=== PATIENT | female | born 1990 | race Caucasian/White ===

== ENCOUNTER 2022-01-17 19:25 | Emergency (ER) | payer OTHER, SELFPAY ==
--- NOTE | ~2022-01-17 | US_ITS ---
EXAMINATION: US ABDOMEN LIMITED CLINICAL INFORMATION: Right upper quadrant pain.. Nausea and vomiting. COMPARISON: None TECHNIQUE: Real-time imaging of the right upper quadrant abdominal viscera.: Doppler utilized. FINDINGS: LIVER: Diffuse increased echoes the liver parenchyma due to fatty change. No focal liver lesion. No intrahepatic bile duct dilatation. GALLBLADDER: Multiple gallstones within the gallbladder. No gallbladder wall thickening or pericholecystic fluid. COMMON BILE DUCT: Normal in caliber measuring 0.4 cm in diameter. FREE FLUID: None. US/US abdomen limited IMPRESSION: 1. Cholelithiasis. No acute change of gallbladder wall. No bile duct dilatation. 2. Diffuse fatty change of liver.
[2022-01-17 19:33] VITALS: BP 130/83; PULSE 76; RESP 17; TEMP 36.7; O2SAT 98; BMI 38.2
[2022-01-17 20:17] LABS: MANUAL DIFF FLAG NO
[2022-01-17 20:18] LABS: Basophils Percent Auto 0.5 % (0-2); Eosinophils Absolute Auto 0.1 X10*3/uL (0.0-0.4); Eosinophils Percent Auto 1.3 % (0-4); Hematocrit 36.7 % (37.0-47.0); Hemoglobin 12.3 g/dl (12.0-16.0); Imm Gran Abs Auto 0.01 X10*3/uL (0.00-0.03); Imm Gran Pct Auto 0.2 % (0.0-0.4); Lymphocytes Absolute Auto 2.2 X10*3/uL (1.2-4.9); Mean Corpuscular HGB Conc 33.5 g/dl (31.0-35.0); Mean Corpuscular Hemoglobin 27.4 pg (27.0-33.0); Mean Corpuscular Volume 81.7 fL (80.0-98.0); Mean Platelet Volume 9.2 fL (9.4-12.3); Monocytes Absolute Auto 0.6 X10*3/uL (0.1-1.2); Monocytes Percent Auto 9.9 % (2-11); Neutrophils Absolute Auto 2.7 x10*3/uL (2.0-8.3); Neutrophils Percent Auto 48.1 % (45-73); Platelet Count 293 X10*3/uL (160-400); Red Blood Count 4.49 X10*6/uL (4.20-5.50); Red Cell Distribution Width 12.5 % (11.0-16.0); White Blood Count 5.6 X10*3/uL (4.8-10.8)
[2022-01-17 20:19] LABS: Appearance Urine Clear; Color Urine Yellow; Glucose Urine UA Negative (Negative); Leukocyte Esterase Urine Small (1+) (Negative); Nitrite Urine Negative (Negative); PH 6.5 (5.0-9.0); Specific Gravity - Urine 1.015 (1.005-1.025); UMIC TRIGGER UACC YES; Urine Blood Moderate (2+) (Negative); Urine Ketones Negative (Negative); Urine Protein Negative (Neg-Trace)
[2022-01-17 20:21] LABS: UPreg QC Valid YES; Urine Pregnancy NEGATIVE (NEGATIVE)
[2022-01-17 20:35] LABS: Alanine Aminotransferase 60 U/L (0-31); Albumin Level 4.7 g/dL (3.5-5.0); Alkaline Phosphatase 83 U/L (39-117); Anion Gap 14 (12-20); Aspartate Amino Transferase 34 U/L (5-31); Bilirubin Total 0.3 mg/dL (0.0-1.0); Blood Urea Nitrogen 11 mg/dL (9-16); Calcium 9.3 mg/dL (8.4-10.2); Carbon Dioxide 24 mmol/L (22-29); Chloride 107 mmol/L (96-108); Creatinine Clr Calc Pharmacy 113.6; Estimated Glomerular Filt Rate > 60; Glucose Random 103 mg/dL (60-115); Lipase 40 U/L (8-78); Potassium 3.9 mmol/L (3.3-5.1); Sodium 141 mmol/L (135-145); Total Protein 7.1 g/dL (6.5-8.0)
[2022-01-17 21:11] LABS: Bacteria Urine None Seen (None Seen); Hyaline Casts Urine 0-2 /LPF (0-2); RBC Urine 0-2 /HPF (0-2); Squamous Epithelial Cell Urine 0-2 /HPF (0-2); UACC Culture Trigger YES; WBC Urine 0-5 /HPF (0-5)
--- NOTE | 2022-01-17 22:02 | ED_ITS ---
HPI - Abdominal Pain General Chief Complaint: Abdominal Pain Stated Complaint: gallbladder pain Time Seen by Provider: 01/17/22 21:41 Source: patient Mode of arrival: ambulatory History of Present Illness HPI narrative: 31-year-old female presents with complaints of onset of right upper quadrant pain that radiates into her back and up into her right shoulder that started this morning and has been associated with multiple episodes of nausea and vomiting but denies any fever chills, and denies any urinary pain/burning/frequency. Patient states that she has been evaluated by [facility] surgery was unable to schedule her for cholecystectomy until next April. Related Data Previous Rx's Medication Instructions Recorded ketorolac 10 mg tablet 10 mg PO Q6H PRN pain 5 days #20 01/17/22 tabs ondansetron HCl 4 mg tablet 4 mg PO Q6H PRN nausea and 01/17/22 vomiting #10 tabs Allergies Allergy/AdvReac Type Severity Reaction Status Date / Time metoclopramide Allergy Itching Verified 01/17/22 22:01 Review of Systems Review of Systems Pertinent positives and negatives as stated in HPI 10 point review of systems is otherwise negative. [facility] Past Medical History Source: nursing notes reviewed Social History Social History Advance Directives: No Advance Directives Information Provided: No Physical Exam ED Vital Signs: Vital Signs - 24 hr 01/17/22 19:33 01/17/22 23:04 Temperature 98.0 F Pulse Rate 76 77 Respiratory Rate 17 18 Blood Pressure 130/83 134/82 Pulse Oximetry 98 99 Oxygen Delivery Method Room Air Room Air BMI result Body Mass Index 38.2 VITAL SIGNS: Reviewed. GENERAL: Elevated BMI, Well developed, well nourished, in no acute distress. HEAD: Normocephalic/atraumatic EYES: PERRLA, EOMI EARS: Ext canals without abnormality OROPHARYNX: no oral lesions noted, posterior pharynx clear LUNGS: Normal breath sounds. No adventitious sounds or accessory muscle use. SpO2<98> CARDIOVASCULAR: Regular rate and rhythm without noted murmur ABDOMEN: Soft, right upper quadrant pain, Soto's positive, non-distended with bowel sounds. MUSCULOSKELETAL: No tenderness, deformities, or effusions noted on gross inspection. EXTREMITIES: No cyanosis, clubbing or edema. SKIN: Inspection of the skin reveals no rashes NEUROLOGIC: Alert and oriented x 4. Strength and sensation to light touch were grossly intact x 4. Course Course Course Narrative: 31-year-old female with history and clinical presentation after review of all investigations with possibility of either biliary colic but lower clinical suspicion for acute cholecystitis. On review of all investigations to include ultrasound there is no evidence to suggest acute cholecystitis, patient's nausea and vomiting have resolved however she is still having some vague abdominal discomfort. I did discuss case with Dr. Greene who feels that as long is patient's p.o. tolerance and pain are well controlled the patient can follow-up with him and possibly get scheduled for surgery sometime this week. I have discussed all results, findings as well as the hopeful plan. Patient is very pleased and is otherwise stable for discharge to home. Medications Administered Discontinued Medications Generic Name Dose Route Start Last Admin Trade Name Freq PRN Reason Stop Dose Admin Acetaminophen 650 mg 01/17/22 23:17 01/17/22 23:39 Acetaminophen 325 Mg Tablet PO 01/17/22 23:18 650 mg ONCE ONE Administration Ondansetron HCl 4 mg 01/17/22 22:05 01/17/22 23:03 Ondansetron Odt 4 Mg Tab.Rapdis TRANSLINGU 01/17/22 22:06 Not Given ONCE ONE MDM - Abdominal Pain Lab Data Result diagrams: 01/17/22 20:09 01/17/22 20:09 Labs: Lab Results 01/17/22 01/17/22 01/17/22 Range/Units 20:09 20:09 20:09 WBC 5.6 (4.8-10.8) X10*3/uL RBC 4.49 (4.20-5.50) X10*6/uL Hgb 12.3 (12.0-16.0) g/dl Hct 36.7 L (37.0-47.0) % MCV 81.7 (80.0-98.0) fL MCH 27.4 (27.0-33.0) pg MCHC 33.5 (31.0-35.0) g/dl RDW 12.5 (11.0-16.0) % Plt Count 293 (160-400) X10*3/uL MPV 9.2 L (9.4-12.3) fL Immature Gran % (Auto) 0.2 (0.0-0.4) % Neut % (Auto) 48.1 (45-73) % Lymph % (Auto) 40.0 (20-40) % Thomas % (Auto) 9.9 (2-11) % Eos % (Auto) 1.3 (0-4) % Baso % (Auto) 0.5 (0-2) % Lymph # (Auto) 2.2 (1.2-4.9) X10*3/uL Thomas # (Auto) 0.6 (0.1-1.2) X10*3/uL Eos # (Auto) 0.1 (0.0-0.4) X10*3/uL Baso # (Auto) 0.0 (0.0-0.2) X10*3/uL Abs Immat Gran (auto) 0.01 (0.00-0.03) X10*3/uL Absolute Neuts (auto) 2.7 (2.0-8.3) x10*3/uL Absolute Nucleated RBC 0.000 (0.0-0.012) X10*3/uL Nucleated RBC % (auto) 0.0 (0.0-0.2) /100WBC Sodium 141 (135-145) mmol/L Potassium 3.9 (3.3-5.1) mmol/L Chloride 107 (96-108) mmol/L Carbon Dioxide 24 (22-29) mmol/L Anion Gap 14 (12-20) BUN 11 (9-16) mg/dL Creatinine 0.86 (0.5-1.4) mg/dL Estim Creat Clear Calc 113.6 Estimated GFR > 60 Random Glucose 103 (60-115) mg/dL Calcium 9.3 (8.4-10.2) mg/dL Magnesium 2.0 (1.6-2.6) mg/dL Total Bilirubin 0.3 (0.0-1.0) mg/dL AST 34 H (5-31) U/L ALT 60 H (0-31) U/L Alkaline Phosphatase 83 (39-117) U/L Total Protein 7.1 (6.5-8.0) g/dL Albumin 4.7 (3.5-5.0) g/dL Lipase 40 (8-78) U/L Urine Color Yellow Urine Appearance Clear Urine pH 6.5 (5.0-9.0) Ur Specific [place] 1.015 (1.005-1.025) Urine Protein Negative (Neg-Trace) mg/dL Urine Glucose (UA) Negative (Negative) mg/dL Urine Ketones Negative (Negative) mg/dL Urine Blood Moderate (2+) H (Negative) Urine Nitrite Negative (Negative) Ur Leukocyte Esterase Small (1+) H (Negative) Urine RBC 0-2 (0-2) /HPF Urine WBC 0-5 (0-5) /HPF Ur Squamous Epith Cells 0-2 (0-2) /HPF Urine Bacteria None Seen (None Seen) Hyaline Casts 0-2 (0-2) /LPF Urine Test (NEGATIVE) 01/17/22 Range/Units 20:09 WBC (4.8-10.8) X10*3/uL RBC (4.20-5.50) X10*6/uL Hgb (12.0-16.0) g/dl Hct (37.0-47.0) % MCV (80.0-98.0) fL MCH (27.0-33.0) pg MCHC (31.0-35.0) g/dl RDW (11.0-16.0) % Plt Count (160-400) X10*3/uL MPV (9.4-12.3) fL Immature Gran % (Auto) (0.0-0.4) % Neut % (Auto) (45-73) % Lymph % (Auto) (20-40) % Thomas % (Auto) (2-11) % Eos % (Auto) (0-4) % Baso % (Auto) (0-2) % Lymph # (Auto) (1.2-4.9) X10*3/uL Thomas # (Auto) (0.1-1.2) X10*3/uL Eos # (Auto) (0.0-0.4) X10*3/uL Baso # (Auto) (0.0-0.2) X10*3/uL Abs Immat Gran (auto) (0.00-0.03) X10*3/uL Absolute Neuts (auto) (2.0-8.3) x10*3/uL Absolute Nucleated RBC (0.0-0.012) X10*3/uL Nucleated RBC % (auto) (0.0-0.2) /100WBC Sodium (135-145) mmol/L Potassium (3.3-5.1) mmol/L Chloride (96-108) mmol/L Carbon Dioxide (22-29) mmol/L Anion Gap (12-20) BUN (9-16) mg/dL Creatinine (0.5-1.4) mg/dL Estim Creat Clear Calc Estimated GFR Random Glucose (60-115) mg/dL Calcium (8.4-10.2) mg/dL Magnesium (1.6-2.6) mg/dL Total Bilirubin (0.0-1.0) mg/dL AST (5-31) U/L ALT (0-31) U/L Alkaline Phosphatase (39-117) U/L Total Protein (6.5-8.0) g/dL Albumin (3.5-5.0) g/dL Lipase (8-78) U/L Urine Color Urine Appearance Urine pH (5.0-9.0) Ur Specific [place] (1.005-1.025) Urine Protein (Neg-Trace) mg/dL Urine Glucose (UA) (Negative) mg/dL Urine Ketones (Negative) mg/dL Urine Blood (Negative) Urine Nitrite (Negative) Ur Leukocyte Esterase (Negative) Urine RBC (0-2) /HPF Urine WBC (0-5) /HPF Ur Squamous Epith Cells (0-2) /HPF Urine Bacteria (None Seen) Hyaline Casts (0-2) /LPF Urine Test NEGATIVE (NEGATIVE) Discharge Plan Discharge Clinical Impression: Biliary colic, Cholelithiasis Patient Disposition: Home, Self-Care Instructions: Biliary Colic (ED), Gallstones (ED) Additional Instructions: 1. Tylenol 1000 mg, orally, every 6 hours as needed for pain control. Do not exceed 4000 mg within 24 hours. 2. You have been provided with a referral to follow-up with General surgery, please call the office 1st thing in the morning. Return to the ER for worsening symptoms. Prescriptions: New ketorolac 10 mg tablet 10 mg PO Q6H PRN (Reason: pain) 5 Days Qty: 20 0RF Rx Instructions: 1. Patient received Toradol in the emergency room. ondansetron HCl 4 mg tablet 4 mg PO Q6H PRN (Reason: nausea and vomiting) Qty: 10 0RF Referrals: Abdiel Hernandez MD [Primary Care Provider] - Neil Greene MD [Physician] -
--- NOTE | 2022-01-17 22:59 | PC.NURSE ---
attempted to medicate pt, pt in u/s.
--- NOTE | 2022-01-17 23:03 | PC.NURSE ---
pt back from u/s, denies any nausea at this time, declined zofran.
[2022-01-17 23:04] VITALS: BP 134/82; PULSE 77; RESP 18; O2SAT 99
[2022-01-17] MEDS: Acetaminophen 325 MG TABLET 650 MG PO (23:39)
[2022-01-18] MEDS: Ketorolac Tromethamine 15 MG/ML VIAL IM (00:37)
== END 2022-01-18 01:04 | disposition home or self-care (01) ==
PROVIDERS: Emergency Provider Student in an Organized Health Care Education/Training Program; PCP Internal Medicine
DX: K80.50 Calculus of bile duct without cholangitis or cholecystitis without obstruction (principal); Z79.899 Other long term (current) drug therapy
CPT/HCPCS: 36415; 76705; 80053; 81001; 81025; 83690; 83735; 85025; 87086; 87147; 99284; J1885

== ENCOUNTER → 2022-01-20 08:12 | Outpatient (BNVA) | payer OTHER, SELFPAY | PROVIDERS: PCP Internal Medicine; Visit Provider Surgery | DX: K80.50 Calculus of bile duct without cholangitis or cholecystitis without obstruction (principal); K75.81 Nonalcoholic steatohepatitis (NASH); R11.10 Vomiting, unspecified; R79.89 Other specified abnormal findings of blood chemistry; E66.01 Morbid (severe) obesity due to excess calories; Z80.0 Family history of malignant neoplasm of digestive organs; Z68.39 Body mass index [BMI] 39.0-39.9, adult | CPT/HCPCS: 99202 ==

== ENCOUNTER 2022-02-04 07:11 | Day surgery (SDC) | payer OTHER, SELFPAY ==
[2022-01-29 15:04] VITALS: BMI 38.8
--- NOTE | 2022-02-03 11:49 | HO.ANESPROP2 ---
Documented by User: Sarah Mendez NP 02/03/22 11:50 HPI - Anesthesia Eval Consult details Narrative: 31yo F for Cholecystectomy Laparoscopic,possible open,possible cholangiogram PMFSH Active Problems Active Problems: All Active Problems (Updated 01/29/22 @ 15:01 by Christina Orosco, RN) Biliary colic (Acute) Nonalcoholic steatohepatitis (RUSHING) (Acute) Morbid (severe) obesity due to excess calories (Acute) Vomiting (Acute) Abnormality in other liver function test (Acute) Family history of cancer of gallbladder (Acute) Past Medical History Medical History Bipolar disorder Fatty liver GERD (gastroesophageal reflux disease) History of febrile seizure History of supraventricular tachycardia Vapes nicotine containing substance Surgical History Surgical History (Updated 01/29/22 @ 15:01 by Christina Orosco, RN) History of ankle surgery History of radiofrequency ablation (RFA) procedure for cardiac arrhythmia History of surgery on right wrist History of tubal ligation Social History Social History Are you a primary behavioral health care manager to a significant other at home: Yes Do you presently have visiting nurse or other home services: No Tobacco use type: Smokeless Tobacco Meds Allergies Allergy/AdvReac Type Severity Reaction Status Date / Time metoclopramide Allergy Itching Verified 01/29/22 15:03 promethazine [From Phenergan] Allergy Redness of Verified 01/29/22 15:03 Skin, itching Home Medications Medication Instructions Recorded Confirmed Last Taken Type buspirone 10 mg tablet 2 tab PO BID 01/29/22 01/29/22 Unknown History cariprazine 6 mg capsule (Vraylar) 1 cap PO DAILY 01/29/22 01/29/22 Unknown History lamotrigine 200 mg tablet 1 tab PO DAILY 01/29/22 01/29/22 Unknown History lamotrigine 25 mg tablet 2 tab PO DAILY 01/29/22 01/29/22 Unknown History omeprazole 20 mg capsule,delayed 1 cap PO DAILY 01/29/22 01/29/22 Unknown History release Exam Exam Date and Time: February 03, 2022 1149 Height,Weight and Vital Signs: Height 5 ft 4.5 in Weight 104.326 kg Pertinent Lab Results Pertinent Lab Results: Laboratory Tests 01/17/22 01/17/22 20:09 20:09 WBC 5.6 Hgb 12.3 Hct 36.7 L Plt Count 293 Sodium 141 Potassium 3.9 Chloride 107 Carbon Dioxide 24 BUN 11 Creatinine 0.86 Assessment and Plan Assessment Anesthesia Assessment: Chart Reviewed Documented by User: Ferny Umana MD 02/04/22 18:08 HPI - Anesthesia Eval Consult details Narrative: 31yo F for Cholecystectomy Laparoscopic,possible open,possible cholangiogram svt s/p ablation PMFSH Past Medical History Medical History Bipolar disorder Fatty liver GERD (gastroesophageal reflux disease) History of febrile seizure History of supraventricular tachycardia Vapes nicotine containing substance Functional capacity: independent ambulation Family History Family history of problems with anesthesia: No Surgical History Surgical History (Updated 01/29/22 @ 15:01 by Christina Orosco RN) History of ankle surgery History of radiofrequency ablation (RFA) procedure for cardiac arrhythmia History of surgery on right wrist History of tubal ligation History of Problems with Anesthesia: No Social History Social History Are you a primary behavioral health care manager to a significant other at home: Yes Do you presently have visiting nurse or other home services: No Tobacco use type: Smokeless Tobacco Meds Allergies Allergy/AdvReac Type Severity Reaction Status Date / Time metoclopramide Allergy Itching Verified 01/29/22 15:03 promethazine [From Phenergan] Allergy Redness of Verified 01/29/22 15:03 Skin, itching Home Medications Medication Instructions Recorded Confirmed Last Taken Type buspirone 10 mg tablet 2 tab PO BID 01/29/22 01/29/22 Unknown History cariprazine 6 mg capsule (Vraylar) 1 cap PO DAILY 01/29/22 01/29/22 Unknown History lamotrigine 200 mg tablet 1 tab PO DAILY 01/29/22 01/29/22 Unknown History lamotrigine 25 mg tablet 2 tab PO DAILY 01/29/22 01/29/22 Unknown History omeprazole 20 mg capsule,delayed 1 cap PO DAILY 01/29/22 01/29/22 Unknown History release Exam Airway Mallampati Class: III TM Dist: >3cm Loose/Missing/Broken Teeth: Yes Heart: S1,S2 Lungs: b/l breath sounds Assessment and Plan Assessment Anesthesia Assessment: Anesthesia Plan Discussed Final Anesthetic Review Family History of Problems with Anesthesia: No History of Problems with Anesthesia: No NPO: Yes ASA Class: III Final Preanesthetic Review: Meds/Allgs Chart Reviewed, Consent Obtained/Reviewed and Anes Risks/Benef Reviewed Patient Risk: Intermediate Procedure Risk: Intermediate Anesthetic Plan Anesthetic Plan: GA Disposition: Standard PACU
[2022-02-04] VITALS (7 sets, daily range): BP systolic 101–135; BP diastolic 67–85; PULSE 90–107; RESP 16–18; TEMP 36.4–36.8; O2SAT 93–98
[2022-02-04] MEDS: Lactated Ringers 1,000 ML 100 ML IVCONT (07:38)
[2022-02-04] MEDS: Acetaminophen 325 MG TABLET 650 MG PO (07:39)
--- NOTE | 2022-02-04 07:40 | MHC.SHP ---
Pre-Procedural Eval Section A Date of Service: 02/04/22 The patient is an INPATIENT: No The History & Physical has been completed within 30 days and I have reviewed it.: Yes Section B Chief Complaint: Calculus of bile duct without cholangitis Allergies: Allergies Allergy/AdvReac Type Severity Reaction Status Date / Time metoclopramide Allergy Itching Verified 01/29/22 15:03 promethazine [From Phenergan] Allergy Redness of Verified 01/29/22 15:03 Skin, itching Plan I have reviewed the history and physical and performed a pertinent physical examination on my patient. No changes have occurred unless specified.
--- NOTE | 2022-02-04 07:41 | P.OP_ITS ---
Operative Note Operative Note Date of Service: 02/04/22 Narrative: Preop diagnosis: [Biliary colic and family history of gallbladder cancer, quienscent umbilical hernia] Postop diagnosis: [Same and hepatomegaly, RUSHING] Procedure: [Lap earl] Surgeon: Neil Greene MD Assist: [] Anesthesia: [GET; Local ropivicaine, 0.5%] Estimated blood loss: [3cc] Specimen: [GB & contects] Intraoperative findings: [Grossly normal appearing gallbladder; cystic duct 3-4 mm; cystic artery 3-4 mm. Critical view of safety demonstrated. Hepatomegaly and RUSHING noted.] Indications: [The patient is a 31-year-old woman with multiple GI complaints including vomiting that may be secondary to gastroparesis who presented with an adherent stone versus polyp to her gallbladder and symptoms consistent with biliary colic. We discussed hepatomegaly and RUSHING which can contribute to vague GI complaints including nausea and right upper quadrant pain reviewed the pros and cons of laparoscopic cholecystectomy. I also explained that it is possible some of her symptoms unrelated to her gallbladder will persist and will need to be evaluated and treated by a otolaryngologist. The patient expressed concern about a family history of gallbladder cancer in an aunt and ultimately wanted to proceed with surgery. I explained the symptoms of biliary colic and recommended laparoscopic cholecystectomy. I reviewed the option of continued observation and 2nd opinion which was declined. I also reviewed the inherent risks to surgery which include, but are not limited to: Bleeding that could require another operation or blood transfusion, the need for open surgery, the unlikely but possible issue of bile leak that could require an ERCP, the risk of retained common duct stones that could require an ERCP, the risk of common bile duct injury which would require transfer to a larger institution for another operation. Patient seemed to understand her options, declined a lottery clerk or 2nd opinion and wants to proceed. Instructions regarding diet and activity reviewed and apparently understood. The patient is advised to avoid rich fatty foods postoperatively to avoid GI distress/diarrhea and advised to not lift more than 20 lb for medical reasons to minimize the risk of hernia postoperatively. I recommended that she discuss these restrictions with her employer and that she is not disabled during this time frame but can perform light duty. The patient's questions seemed to be satisfactorily answered.] Procedure: [The patient was identified in preoperative holding and again in the operating room and placed supine on the table. The patient voided bladder long distance operator, sequential compression stockings were in place, subcu heparin had been administered and antibiotics per protocol were given. The patient was induced in general endotracheal anesthesia administered with excellent effect. An appropriate time-out was performed. A footboard was utilized. The patient's abdomen was widely prepped and draped in the usual manner for surgery using chlorhexidine. Preemptive local was used at all trocar insertion sites. Again at the supraumbilical location and after infiltrating local, made a stab incision and placed a Veress needle without difficulty. An appropriate drop test was perfor med and a pneumoperitoneum of 15 mmHg was obtained using carbon dioxide. opening pressure was 6 mmHg. Next, the needle was withdrawn and a 5 mm/30 degree laparoscoped over Optiview trocar was used to access the abdomen without incident. Upon examining the abdomen, there was no evidence of injury from the Veress needle or trocar. Next, 5 mm trocars were placed in the epigastric, subcostal and right anterior axillary line just above the line of the umbilicus. Under direct laparoscopic vision, the 5 mm umbilical port was upsized to a 12 mm. The patient was then positioned in reverse Trendelenburg position and banked left. The gallbladder was clearly identified and grasped by its fundus. The patient is noted to have significant hepatomegaly and RUSHING. It was retracted cranially and anteriorly and dissection began in the cystic triangle. The cystic duct was identified at its junction on the gallbladder and dissection began laterally, then circumferentially dissected using the [place] dissector and hook. The cystic artery was then carefully identified and circumferentially dissected. Once dissection of both structures was complete and the critical view of safety demonstrated, the duct and artery were double clipped proximally and once distally and sharply divided. Electrocautery was used to remove the gallbladder from its fossa on the liver. Liver bed was inspected for hemostasis and the clips were noted to be on the respective structures. The gallbladder was placed in an Endo-Catch bag and delivered through the umbilicus under direct laparoscopic vision. The abdomen was again inspected with the laparoscoped and a abdomen deflated to assess for hemostasis. The patient was returned to neutral position, the abdomen deflated and the fascia of the supraumbilical incision closed with interrupted Vicryl sutures. Skin was closed with 4-0 Monocryl subcuticular sutures. Mastisol and Steri-Strips were applied followed by Band-Aids. The patient tolerated the procedure well and was extubated recovered in stable condition. All sponge instrument counts were correct. At the patient's request I called her grandmother, Carolyn Plata at [phone] and apprised her of the operation and post op plan, diet activity restriction & pain management. Her questions seemed to be satisfactorily answered.]
== END 2022-02-04 11:29 | disposition home or self-care (01) ==
LOC: HO.SSS 07:12
PROVIDERS: PCP Internal Medicine; Visit Provider Surgery
PROC: 0FT44ZZ Resection of Gallbladder, Percutaneous Endoscopic Approach (ICD-10-PCS; CPT 47562; principal; 2022-02-04 09:20)
DX: K80.10 Calculus of gallbladder with chronic cholecystitis without obstruction (principal); Z80.0 Family history of malignant neoplasm of digestive organs; R16.0 Hepatomegaly, not elsewhere classified; K75.81 Nonalcoholic steatohepatitis (NASH); R11.10 Vomiting, unspecified; E66.01 Morbid (severe) obesity due to excess calories; R79.89 Other specified abnormal findings of blood chemistry; Z79.899 Other long term (current) drug therapy; Z88.8 Allergy status to other drugs, medicaments and biological substances
CPT/HCPCS: 47562; 88304; J0690; J1170; J1885; J2250; J2370; J2405; J2795; J3010

== ENCOUNTER → 2022-02-16 10:17 | Outpatient (BNVA) | payer OTHER, SELFPAY | PROVIDERS: PCP Internal Medicine; Visit Provider Surgery | DX: Z13.89 Encounter for screening for other disorder (principal) ==

== ENCOUNTER 2024-08-28 15:48 | Emergency (ER) | payer OTHER, SELFPAY ==
--- NOTE | ~2024-08-28 | CT_ITS ---
CLINICAL HISTORY: intractable headache, L posterior CT HEAD WITHOUT CONTRAST Comparison: None provided Findings: No acute intracranial hemorrhage, extra-axial fluid collection, hydrocephalus or midline shift. No significant atrophy-like change No significant white matter disease. There is no sinus or mastoid fluid. Visualized orbits: No acute abnormalities. There is no acute fracture. IMPRESSION: 1. No acute intracranial hemorrhage. This document has been electronically signed by: Jagruti Dominguez DO on 08/28/2024 18:20:36
--- NOTE | 2024-08-28 16:31 | ED.HA ---
HPI - Headache General Chief Complaint: Headache Stated Complaint: headache Time Seen by Provider: 08/28/24 18:56 Source: patient Mode of arrival: ambulatory Limitations: no limitations History of Present Illness ED Provider: Dr. Morrell HPI Narrative: Patient is complaining of headache for last 1 week does have history of migraine headaches in the past slight nauseated in light sensitivity no vomiting no fever no chills no neck Related Data Home Medications ?Medication ?Instructions ?Recorded ?Confirmed buspirone 10 mg tablet 2 tab PO BID 01/29/22 02/16/22 cariprazine 6 mg capsule (Vraylar) 1 cap PO DAILY 01/29/22 02/16/22 lamotrigine 200 mg tablet 1 tab PO DAILY 01/29/22 02/16/22 lamotrigine 25 mg tablet 2 tab PO DAILY 01/29/22 02/16/22 omeprazole 20 mg capsule,delayed 1 cap PO DAILY 01/29/22 02/16/22 release Previous Rx's ?Medication ?Instructions ?Recorded ketorolac 10 mg tablet 10 mg PO Q6H PRN pain 5 days #20 01/17/22 tabs ondansetron HCl 4 mg tablet 4 mg PO Q6H PRN nausea and 01/17/22 vomiting #10 tabs bghqmeuzrv-dbdbfngccqehu-xhobuhgd 1 tab PO Q6H PRN haeadace #20 tabs 08/28/24 50 mg-325 mg-40 mg tablet ondansetron 4 mg disintegrating 4 mg PO Q6-8H PRN nausea and 08/28/24 tablet vomiting #7 tabs sumatriptan succinate 50 mg tablet 50 mg PO Q2H PRN migraine headache 08/28/24 (Imitrex) #10 tabs Allergies Allergy/AdvReac Type Severity Reaction Status Date / Time metoclopramide Allergy Itching Verified 08/28/24 16:34 promethazine (From Phenergan) Allergy Redness of Verified 08/28/24 16:34 Skin, itching Review of Systems Review of Systems: Yes all other systems are reviewed and are negative PMFSH Past Medical History Medical History Vapes nicotine containing substance History of febrile seizure Fatty liver Bipolar disorder History of supraventricular tachycardia GERD (gastroesophageal reflux disease) Surgical History History of surgery on right wrist History of ankle surgery History of tubal ligation History of radiofrequency ablation (RFA) procedure for cardiac arrhythmia Social History Social History Are you a primary dialysis patient care technician to a significant other at home: Yes Do you presently have visiting nurse or other home services: No Comment: ok with 2 Tobacco use type: Smokeless Tobacco Smoked in Last 30 Days: No Use of substances other than those prescribed or required for medical reasons: Yes Substance Use Type: Marijuana Substance Use Frequency: Occasionally Advance Directives: No Advance Directives Information Provided: No Do you have a plan to hurt others: No Plan Patient : No Physical Exam Vital Signs: Vital Signs: Last Vital Signs Temp 98.4 F 08/28/24 20:29 Pulse 58 08/28/24 20:29 Resp 12 08/28/24 20:29 BP 114/82 08/28/24 20:29 Pulse Ox 97 08/28/24 20:29 O2 Del Method Room Air 08/28/24 20:29 BMI result Body Mass Index 30.8 Appearance: Alert. Oriented X3. No acute distress. Eyes: no pallor or icterus ENT: Pharynx normal Oral Mucosa moist tympanic membrane intact no erythema, no temporal artery tenderness Neck: Normal inspection. Neck supple. CVS: Normal heart rate and rhythm. Pulses normal. Respiratory: No respiratory distress. Equal air entry bilateral, no wheezing/rales/rhonchi Abd: soft, not tender Skin: Skin warm and dry. Normal skin color. Normal skin turgor. Extremities: No lower extremity edema, no calf tenderness Neuro: Oriented X 3. Course Course Course Narrative: This is an RME performed by Alecia Vargas CNP: Additional HPI, ROS, PE not included below will be deferred to primary provider. patient is a 33-year-old female who presents to the emergency department. Constant x1 week, left posterior head, onset after an allergic reaction to unknown allergen. Associated nausea, vomiting, seeing black spots, vision is hazy , confusion. Referred from urgent care. Has tried excedrine, tylenol, ibuprofen. No focal neuro deficits deficit. NIH score 0. Plan: serum labs, CT head for intractable headache Medications Administered Discontinued Medications Generic Name Dose Route Start Last Admin Trade Name Freq PRN Reason Stop Dose Admin Acetaminophen/Butalbital/Caffeine 1 tab 08/28/24 19:19 08/28/24 19:30 Butalb/Acetamin/Caff 50/325/40 Tablet PO 08/28/24 19:20 1 tab ONCE ONE Administration Ondansetron HCl 4 mg 08/28/24 19:19 08/28/24 19:30 Ondansetron Odt 4 Mg Tab.Rapdis TRANSLINGU 08/28/24 19:20 4 mg ONCE ONE Administration Sumatriptan Succinate 6 mg 08/28/24 19:19 08/28/24 19:33 Sumatriptan Succinate 6 Mg/0.5 Ml Vial SUBCUT 08/28/24 19:20 6 mg ONCE ONE Administration Medical Decision Making Medical Decision Making [facility] Narrative: Patient's migraine headache him improved after Imitrex will discharge patient home on Imitrex and Fioricet Differential Diagnosis Differential Diagnoses: The differential diagnosis associated with the presentation includes Lab Data [facility] Lab Attestation statement: I reviewed the patient's lab results. 08/28/24 17:06 08/28/24 17:06 Labs: Lab Results 08/28/24 08/28/24 Range/Units 17:06 18:26 WBC 6.3 (4.8-10.8) X10*3/uL RBC 5.21 (4.20-5.50) X10*6/uL Hgb 14.8 D (12.0-16.0) g/dl Hct 42.3 (37.0-47.0) % MCV 81.2 (80.0-98.0) fL MCH 28.4 (27.0-33.0) pg MCHC 35.0 (31.0-35.0) g/dl RDW 12.2 (11.0-16.0) % Plt Count 268 (160-400) X10*3/uL MPV 9.9 (9.4-12.3) fL Immature Gran % (Auto) 0.2 (0.0-0.4) % Neut % (Auto) 49.1 (45-73) % Lymph % (Auto) 39.6 (20-40) % [place] % (Auto) 9.9 (2-11) % Eos % (Auto) 0.9 (0-4) % Baso % (Auto) 0.3 (0-2) % Lymph # (Auto) 2.5 (1.2-4.9) X10*3/uL [place] # (Auto) 0.6 (0.1-1.2) X10*3/uL Eos # (Auto) 0.1 (0.0-0.4) X10*3/uL Baso # (Auto) 0.0 (0.0-0.2) X10*3/uL Abs Immat Gran (auto) 0.01 (0.00-0.03) X10*3/uL Absolute Neuts (auto) 3.1 (2.0-8.3) x10*3/uL Absolute Nucleated RBC 0.000 (0.0-0.012) X10*3/uL Nucleated RBC % (auto) 0.0 (0.0-0.2) /100WBC Sodium 141 (135-145) mmol/L Potassium 4.0 (3.3-5.1) mmol/L Chloride 109 H (96-108) mmol/L Carbon Dioxide 22 (22-29) mmol/L Anion Gap 14 (12-20) BUN 6 L (9-16) mg/dL Creatinine 0.66 (0.5-1.4) mg/dL Estim Creat Clear Calc 129.6 Estimated GFR > 60 Random Glucose 97 (60-115) mg/dL Calcium 9.5 (8.4-10.2) mg/dL Total Bilirubin 0.8 (0.0-1.0) mg/dL AST 21 (5-31) U/L ALT 25 (0-31) U/L Alkaline Phosphatase 71 (39-117) U/L Total Protein 7.4 (6.5-8.0) g/dL Albumin 5.2 H (3.5-5.0) g/dL TSH 1.40 (0.32-4.0) uIU/mL Beta HCG, Quant < 2 mIU/mL Urine Color Yellow Urine Appearance Clear Urine pH 6.0 (5.0-9.0) Ur Specific [place] 1.020 (1.005-1.025) Urine Protein Trace (Neg-Trace) mg/dL Urine Glucose (UA) Negative (Negative) mg/dL Urine Ketones 15 (Negative) mg/dL Urine Blood Negative (Negative) Urine Nitrite Negative (Negative) Ur Leukocyte Esterase Negative (Negative) Independent Interpretation I performed an independent interpretation of an: CT Scan Radiology Impression Discussion of test interpretation with radiology: I have reviewed the radiologist's reading. Radiologist Impression: No acute finding in CT scan of the head Discharge Plan Discharge Clinical Impression: Migraine Patient Disposition: Home, Self-Care Instructions: Migraine Headache (ED) Additional Instructions: Take Imitrex 1 tablet at onset of headache may repeat in 2 hours as needed maximum 2 tablets in 24 hours Medicine for nausea as prescribed Fioricet 1 tablet every 6 hours as needed for the headache Follow up with your PCP as needed Prescriptions: New sumatriptan succinate [Imitrex] 50 mg tablet 50 mg PO Q2H PRN (Reason: migraine headache) Qty: 10 0RF Rx Instructions: do not exceed 2 doses per 24 hrs xngzjqgoqo-shsdigeqevuxx-zqdj 50-325-40 mg tablet 1 tab PO Q6H PRN (Reason: haeadace) Qty: 20 0RF ondansetron 4 mg tablet,disintegrating 4 mg PO Q6-8H PRN (Reason: nausea and vomiting) Qty: 7 0RF No Action ketorolac 10 mg tablet 10 mg PO Q6H PRN (Reason: pain) 5 Days Qty: 20 0RF Rx Instructions: 1. Patient received Toradol in the emergency room. ondansetron HCl 4 mg tablet 4 mg PO Q6H PRN (Reason: nausea and vomiting) Qty: 10 0RF lamotrigine 200 mg tablet 1 tab PO DAILY lamotrigine 25 mg tablet 2 tab PO DAILY buspirone 10 mg tablet 2 tab PO BID omeprazole 20 mg capsule,delayed release(DR/EC) 1 cap PO DAILY Vraylar 6 mg capsule 1 cap PO DAILY Interventions: ED Discharge Assessment Last Done: 08/28/24 20:29 Discharge Date/Time: 08/28/24 20:29 Print Language: Niuean
[2024-08-28 16:32] VITALS: BP 132/87; PULSE 87; RESP 18; TEMP 36.2; O2SAT 95; BMI 30.8
[2024-08-28 17:10] LABS: MANUAL DIFF FLAG NO
[2024-08-28 17:15] LABS: Hematocrit 42.3 % (37.0-47.0); Hemoglobin 14.8 g/dl (12.0-16.0); Imm Gran Abs Auto 0.01 X10*3/uL (0.00-0.03); Imm Gran Pct Auto 0.2 % (0.0-0.4); Lymphocytes Absolute Auto 2.5 X10*3/uL (1.2-4.9); Mean Corpuscular HGB Conc 35.0 g/dl (31.0-35.0); Mean Corpuscular Hemoglobin 28.4 pg (27.0-33.0); Mean Corpuscular Volume 81.2 fL (80.0-98.0); NRBC Abs Auto 0.000 X10*3/uL (0.0-0.012); NRBC Pct Auto 0.0 /100WBC (0.0-0.2); Platelet Count 268 X10*3/uL (160-400); Red Blood Count 5.21 X10*6/uL (4.20-5.50); White Blood Count 6.3 X10*3/uL (4.8-10.8)
[2024-08-28 17:51] LABS: Alanine Aminotransferase 25 U/L (0-31); Albumin Level 5.2 g/dL (3.5-5.0); Alkaline Phosphatase 71 U/L (39-117); Anion Gap 14 (12-20); Aspartate Amino Transferase 21 U/L (5-31); Blood Urea Nitrogen 6 mg/dL (9-16); Calcium 9.5 mg/dL (8.4-10.2); Carbon Dioxide 22 mmol/L (22-29); Chloride 109 mmol/L (96-108); Creatinine Clr Calc Pharmacy 129.6; Estimated Glomerular Filt Rate > 60; Potassium 4.0 mmol/L (3.3-5.1); Sodium 141 mmol/L (135-145); Total Protein 7.4 g/dL (6.5-8.0)
[2024-08-28 18:14] VITALS: BP 117/75; PULSE 52; RESP 13; TEMP 36.6; O2SAT 99
[2024-08-28 18:32] LABS: Appearance Urine Clear; Glucose Urine UA Negative (Negative); PH 6.0 (5.0-9.0); Specific Gravity - Urine 1.020 (1.005-1.025)
[2024-08-28 18:33] VITALS: BP 122/86; O2SAT 97
[2024-08-28] MEDS: Butalb/Acetamin/Caff 50/325/40 TABLET 1 TAB PO (19:30)
[2024-08-28 20:18] VITALS: BP 114/82; PULSE 58; RESP 12; TEMP 36.9; O2SAT 97
[2024-08-28 20:29] VITALS: BP 114/82; PULSE 58; RESP 12; TEMP 36.9; O2SAT 97
== END 2024-08-28 20:29 | disposition home or self-care (01) ==
PROVIDERS: Nurse Practitioner Family; Emergency Provider Internal Medicine; PCP Internal Medicine
DX: G43.909 Migraine, unspecified, not intractable, without status migrainosus (principal); R11.0 Nausea; F12.90 Cannabis use, unspecified, uncomplicated; F17.290 Nicotine dependence, other tobacco product, uncomplicated; Z79.899 Other long term (current) drug therapy
CPT/HCPCS: 36415; 70450; 80053; 81003; 84443; 84702; 85025; 96372; 99284; J3030

== ENCOUNTER → 2024-08-28 16:34 | Outpatient (BNV) | payer OTHER, SELFPAY | PROVIDERS: Emergency Provider Internal Medicine; PCP Internal Medicine; Visit Provider Radiology Diagnostic Radiology | DX: G43.011 Migraine without aura, intractable, with status migrainosus (principal) | CPT/HCPCS: 70450 ==

== ENCOUNTER 2025-01-31 05:34 | Observation (INO) | payer OTHER, SELFPAY ==
[2025-01-31] VITALS (8 sets, daily range): BP systolic 105–133; BP diastolic 56–76; PULSE 67–90; RESP 18–20; TEMP 36.3–36.9; O2SAT 98–100; BMI 55.8; BMI 27.3
--- NOTE | ~2025-01-31 | US_ITS ---
EXAMINATION: US PELVIC DUPLEX COMPLETE, US PELVIS TRANSABDOMINAL AND TRANSVAGINAL HISTORY: abnormal CT scan, ? ruptured cyst vs endometrioma COMPARISON: Relation is made with a CT of the pelvis with contrast dated 01/31/2025. TECHNIQUE: Transabdominal and endovaginal real-time 2D coto-scale ultrasound was performed. FINDINGS: Uterus: The uterus is normal in size, measuring 7.4 x 5.0 x 5.3 cm. Myometrium has a normal echotexture. No fibroids are identified. Endometrium: The endometrial stripe measures 11 mm in thickness. There is a 7 mm endometrial calcification. Right ovary: The right ovary measures 3.2 x 3.1 x 3.4 cm. The right ovary is normal in size and echotexture. There is a thick-walled 1.7 x 1.4 x 1.7 cm hypoechoic area with central cystic component which may represent an involuting or ruptured cyst. Normal arterial and venous spectral Doppler wave forms are noted. Left ovary: The left ovary measures 3.1 x 1.4 x 1.8 cm. The left ovary is normal in size and echotexture. Normal arterial and venous spectral Doppler waveforms are noted. Pelvic fluid: There is a moderate amount of free fluid in the pelvis.. US/US pelvic and transvaginal IMPRESSION: Moderate amount of free fluid in the pelvis. 1.7 cm right ovarian involuting follicle or ruptured cyst. Electronically signed by: Behzad Stokes MD 01/31/2025 01:09 PM [facility] [place]
--- NOTE | ~2025-01-31 | CT_ITS ---
EXAMINATION: CT ABDOMEN AND PELVIS WITH CONTRAST CLINICAL INFORMATION: Abdominal pain. Rectal bleeding. COMPARISON: None available. TECHNIQUE: Multidetector volumetric images were obtained from the superior aspect of the liver through the pubic symphysis following administration 85 mL of Omnipaque 350 intravenous contrast. Sagittal and coronal reformatted images were obtained on the technologist's workstation. Oral contrast: No This CT examination was performed using dose optimization techniques as appropriate, variously including the following: *Automated exposure control *Adjustment of mA and/or kV according to patient size (this includes techniques or standardized protocols for targeted exams where dose is matched to indication/reason for exam; i.e. extremities or head) *Use of iterative reconstruction technique. DLP: 460 mGy-cm FINDINGS: LUNG BASES: No acute airspace disease or discrete pulmonary nodule. LIVER, GALLBLADDER, AND BILIARY TREE: Liver measures 16 cm. No enhancing mass. Main portal veins are patent. Status post cholecystectomy. No intrahepatic or extrahepatic biliary ductal dilatation. PANCREAS: No enhancing lesion. No peripancreatic fluid collections. No main pancreatic ductal dilatation. SPLEEN: 10 cm. Small accessory spleen. No solid or cystic lesion. ADRENAL GLANDS: No nodular lesions. KIDNEYS AND URETERS: There are few scattered less than 2 mm calculi, both pelvicalyceal systems. No hydronephrosis. No enhancing renal mass. Normal enhancement of the renal parenchyma. The ureters are not dilated. BLADDER: Fluid-filled. GASTROINTESTINAL TRACT: Collapsed appearance of the left hemicolon with questionable intestinal wall thickening. No pericolonic edema pattern. No intestinal obstruction pattern. No pneumatosis intestinalis. Appendix is normal. No pneumoperitoneum. Small volume of free fluid/ascites in the cul-de-sac and surrounding the adnexa. No peripheral enhancing fluid collection. ABDOMINAL WALL: No umbilical hernia. No gross inguinal hernia. LYMPH NODES: Nonspecific prominent less than 10 mm mesenteric and retroperitoneal lymph nodes. VASCULAR: No gross calcified plaques. No aneurysm or dissection, abdominal aorta. PELVIC VISCERA: Uterus is in retroversion flexion position. There is an 18 mm peripheral enhancing low density in the right adnexa. OSSEOUS STRUCTURES: No acute fracture or listhesis in the axial skeleton. No lytic or blastic lesions. CT/CT abdomen pelvis w IV con IMPRESSION: Questionable acute inflammatory processes involving the left hemicolon versus collapsed left hemicolon. Small to moderate volume of ascites, cul-de-sac and retroverted flexion position of the uterus. Recent rupture ovarian cyst versus endometriosis cannot be excluded. Bilateral nonobstructing nephrolithiasis. Fleischner guidelines were followed. Electronically signed by: Warren Echavarria MD 01/31/2025 08:29 AM [facility]
--- NOTE | ~2025-01-31 | US_ITS ---
EXAMINATION: US PELVIC DUPLEX COMPLETE, US PELVIS TRANSABDOMINAL AND TRANSVAGINAL HISTORY: abnormal CT scan, ? ruptured cyst vs endometrioma COMPARISON: Relation is made with a CT of the pelvis with contrast dated 01/31/2025. TECHNIQUE: Transabdominal and endovaginal real-time 2D coto-scale ultrasound was performed. FINDINGS: Uterus: The uterus is normal in size, measuring 7.4 x 5.0 x 5.3 cm. Myometrium has a normal echotexture. No fibroids are identified. Endometrium: The endometrial stripe measures 11 mm in thickness. There is a 7 mm endometrial calcification. Right ovary: The right ovary measures 3.2 x 3.1 x 3.4 cm. The right ovary is normal in size and echotexture. There is a thick-walled 1.7 x 1.4 x 1.7 cm hypoechoic area with central cystic component which may represent an involuting or ruptured cyst. Normal arterial and venous spectral Doppler wave forms are noted. Left ovary: The left ovary measures 3.1 x 1.4 x 1.8 cm. The left ovary is normal in size and echotexture. Normal arterial and venous spectral Doppler waveforms are noted. Pelvic fluid: There is a moderate amount of free fluid in the pelvis.. US/US pelvic ovarian doppler IMPRESSION: Moderate amount of free fluid in the pelvis. 1.7 cm right ovarian involuting follicle or ruptured cyst. Electronically signed by: Behzad Stokes MD 01/31/2025 01:09 PM [facility] [place]
--- NOTE | 2025-01-31 06:12 | ED.GENADULT ---
HPI - General Adult General Chief complaint: General Medical Stated complaint: abd pain, hematochezia Time Seen by Provider: 01/31/25 06:05 Source: patient Mode of arrival: ambulatory Limitations: no limitations History of Present Illness HPI narrative: This is a 34 years old female presented to the emergency department with a chief complaint of rectal bleeding which started yesterday today worse. She denies any fever or chills vomiting. She has a also some abdominal cramps she has a history of POTS Onset (ago): day(s) (1) Location: abdomen Radiation: non-radiation Severity: moderate Quality: burning Pain Consistency: constant Relieving factors: none Exacerbating factors: none Associated symptoms: denies other symptoms Related Data Home Medications ?Medication ?Instructions ?Recorded ?Confirmed cromolyn 100 mg/5 mL oral 300 mg PO QID 01/31/25 01/31/25 concentrate esomeprazole magnesium 40 mg 40 mg PO DAILY@0630 01/31/25 01/31/25 capsule,delayed release fexofenadine 180 mg tablet 180 mg PO BID 01/31/25 01/31/25 montelukast 10 mg tablet 10 mg PO DAILY 01/31/25 01/31/25 Allergies Allergy/AdvReac Type Severity Reaction Status Date / Time metoclopramide Allergy Itching Verified 01/31/25 05:40 promethazine (From Phenergan) Allergy Redness of Verified 01/31/25 05:40 Skin, itching Review of Systems Constitutional: Constitutional: Reports no additional constitutional complaints ENT: Reports system reviewed and no additional complaints, except as documented Respiratory: Respiratory: Reports no additional respiratory complaints Gastrointestinal: Gastrointestinal: Reports abdominal pain and Reports hematochezia [facility] Past Medical History Attestation statement: The following information was validated with the patient. Medical History Vapes nicotine containing substance History of febrile seizure Fatty liver Bipolar disorder History of supraventricular tachycardia GERD (gastroesophageal reflux disease) Surgical History History of surgery on right wrist History of ankle surgery History of tubal ligation History of radiofrequency ablation (RFA) procedure for cardiac arrhythmia Social History Social History Household Members: Family Housing: House Are you a primary care analyst to a significant other at home: Yes Do you presently have visiting nurse or other home services: No Comment: ok with 2 Patient Tobacco Use Status: Never used Tobacco Tobacco use type: Smokeless Tobacco Substance Use Type: Marijuana Physical Exam ED Exam Exam: No acute distress Vital Signs: Vital Signs - 24 hr 01/31/25 07:56 Temperature 98.1 F Pulse Rate 79 Respiratory Rate 18 Blood Pressure 107/71 Pulse Oximetry 99 Oxygen Delivery Method Room Air BMI result Body Mass Index 55.8 Const General: cooperative Orientation/consciousness: patient oriented x3 HENMT Head: Yes normal to inspection Ears: hearing grossly normal bilaterally General nose exam: Normal external nose present Throat: Yes posterior oropharynx normal Neck Neck: Yes normal visual inspection and Yes full ROM Chest Chest palpation & inspection: normal inspection of the chest Resp Effort & Inspection: normal respiratory effort Auscultation: clear to auscultation bilaterally Cardio Jugular venous distension: no JVD Rate: regular rate Rhythm: regular rhythm GI Inspection: Yes normal to inspection Palpation (GI): Soft to palpation Auscultation: normal bowel sounds Rectal Exam - Female: other (Rectal exam done external hemorrhoid stool sent for Hemoccult) Skin General skin exam: no rashes or lesions noted and elasticity normal Lesions: no lesions Rashes: no rashes Neuro General: patient oriented x3 Medications Administered Generic Name Dose Route Start Last Admin Trade Name Freq PRN Reason Stop Dose Admin Loratadine 10 mg 01/31/25 21:00 01/31/25 21:25 Loratadine 10 Mg Tablet PO Not Given BID BEAN Pt Own (Cromolyn 100 300 mg 01/31/25 21:00 01/31/25 21:24 Mg/5 Ml Concentrate PO Not Given ) QID BEAN Omeprazole 20 mg 02/01/25 06:30 02/01/25 05:40 Omeprazole 20 Mg Capsule.Dr PO Not Given DAILY@0630 BEAN Sodium Chloride 3 ml 02/01/25 00:00 01/31/25 21:29 0.9 % Sodium Chloride Flush 3 Ml Syringe IVFLUSH 3 ml QSHIFT BEAN Administration Discontinued Medications Generic Name Dose Route Start Last Admin Trade Name Freq PRN Reason Stop Dose Admin Sodium Chloride 1,000 mls @ 999 mls/hr 01/31/25 10:45 01/31/25 12:51 Ns IVCONT 01/31/25 11:45 Infused .Q1H1M BEAN Infusion Iohexol 100 ml 01/31/25 08:16 01/31/25 08:17 Iohexol 350 Mg/Ml 100 Ml Infus..Btl IV 01/31/25 08:17 85 ml ONCE ONE Administration Polyethylene Glycol/Electrolytes 4,000 ml 01/31/25 16:00 01/31/25 17:57 Peg 3350/Na Sulf,Bicarb,Cl/Kcl 4,000 Ml Soln.Recon PO 01/31/25 16:01 4,000 ml ONCE ONE Administration Medical Decision Making Medical Decision Making MDM Narrative: Patient presented with rectal bleeding, patient has a pictures of the bleeding, I did a rectal exam also she has a current blood in the stools. I think it is very reasonable to admit her for observation she continued to bleed here in the ED, she has a family history of polyposis of the colon sternal family member with colon cancer we will consult GI has been Differential Diagnosis Differential Diagnoses: The differential diagnosis associated with the presentation includes Admission/Observation Consideration of admission/observation: Escalation of care including admission/observation considered Consult Healthcare Provider Management of the patient was discussed with: Hospitalist and Public Works Commissioner Lab Data MDM Lab Attestation statement: I reviewed the patient's lab results. 01/31/25 09:17 01/31/25 06:16 Labs: Lab Results 01/31/25 01/31/25 01/31/25 Range/Units 06:16 06:18 09:17 WBC 6.7 6.4 (4.8-10.8) X10*3/uL RBC 4.82 4.47 (4.20-5.50) X10*6/uL Hgb 13.5 12.7 (12.0-16.0) g/dl Hct 40.1 36.9 L (37.0-47.0) % MCV 83.2 82.6 (80.0-98.0) fL MCH 28.0 28.4 (27.0-33.0) pg MCHC 33.7 34.4 (31.0-35.0) g/dl RDW 11.9 12.2 (11.0-16.0) % Plt Count 304 264 (160-400) X10*3/uL MPV 9.7 9.7 (9.4-12.3) fL Immature Gran % (Auto) 0.1 0.2 (0.0-0.4) % Neut % (Auto) 53.4 55.0 (45-73) % Lymph % (Auto) 37.6 35.4 (20-40) % [place] % (Auto) 7.6 8.2 (2-11) % Eos % (Auto) 1.0 0.9 (0-4) % Baso % (Auto) 0.3 0.3 (0-2) % Lymph # (Auto) 2.5 2.3 (1.2-4.9) X10*3/uL [place] # (Auto) 0.5 0.5 (0.1-1.2) X10*3/uL Eos # (Auto) 0.1 0.1 (0.0-0.4) X10*3/uL Baso # (Auto) 0.0 0.0 (0.0-0.2) X10*3/uL Abs Immat Gran (auto) 0.01 0.01 (0.00-0.03) X10*3/uL Absolute Neuts (auto) 3.6 3.5 (2.0-8.3) x10*3/uL Absolute Nucleated RBC 0.000 0.000 (0.0-0.012) X10*3/uL Nucleated RBC % (auto) 0.0 0.0 (0.0-0.2) /100WBC Sodium 140 (135-145) mmol/L Potassium 4.0 (3.3-5.1) mmol/L Chloride 112 H (96-108) mmol/L Carbon Dioxide 19 L (22-29) mmol/L Anion Gap 13 (12-20) BUN 15 (9-16) mg/dL Creatinine 0.60 (0.5-1.4) mg/dL Estim Creat Clear Calc 198.1 Estimated GFR > 60 Random Glucose 97 (60-115) mg/dL Calcium 9.0 (8.4-10.2) mg/dL Total Bilirubin 0.3 (0.0-1.0) mg/dL AST 23 (5-31) U/L ALT 24 (0-31) U/L Alkaline Phosphatase 71 (39-117) U/L C-Reactive Protein < 0.10 (< or = 0.50) mg/dL Total Protein 7.2 (6.5-8.0) g/dL Albumin 5.0 (3.5-5.0) g/dL Urine Color Yellow Urine Appearance Clear Urine pH 7.0 (5.0-9.0) Ur Specific [place] <= 1.005 (1.005-1.025) Urine Protein Negative (Neg-Trace) mg/dL Urine Glucose (UA) Negative (Negative) mg/dL Urine Ketones Negative (Negative) mg/dL Urine Blood Negative (Negative) Urine Nitrite Negative (Negative) Ur Leukocyte Esterase Negative (Negative) Urine Test NEGATIVE (NEGATIVE) Stool Occult Blood POSITIVE (NEGATIVE) Independent Interpretation I performed an independent interpretation of an: CT Scan Interpretation: No acute disease Radiology Impression Discussion of test interpretation with radiology: I have reviewed the radiologist's reading. Radiologist Impression: m mesenteric and retroperitoneal lymph nodes. VASCULAR: No gross calcified plaques. No aneurysm or dissection, abdominal aorta. PELVIC VISCERA: Uterus is in retroversion flexion position. There is an 18 mm peripheral enhancing low density in the right adnexa. OSSEOUS STRUCTURES: No acute fracture or listhesis in the axial skeleton. No lytic or blastic lesions. CT/CT abdomen pelvis w IV con IMPRESSION: Questionable acute inflammatory processes involving the left hemicolon versus collapsed left hemicolon. Small to moderate volume of ascites, cul-de-sac and retroverted flexion position of the uterus. Recent rupture ovarian cyst versus endometriosis cannot be excluded. Bilateral nonobstructing nephrolithiasis. Fleischner guidelines were followed. Electronically signed by: Warren Echavarria MD 01/31/2025 08:29 AM EST Dictated By: Warren Bernabe MD Signed By: <Electronically signed by Warren Grant MD in OV> 01/31/25 0829 Independent Historian MOther Critical Care Time Critical Care Time Critical Care Time: Yes Total Critical Care Time: 60 Attestation: taking care of pt speaking with home energy consultant supervisor Discharge Plan Discharge Clinical Impression: Rectal bleeding Patient Disposition: Admitted As Inpatient Interventions: Admission Worksheet (ED) Last Done: 01/31/25 16:40 Discharge Date/Time: 01/31/25 17:47
[2025-01-31 06:22] LABS: MANUAL DIFF FLAG NO
[2025-01-31 06:39] LABS: Hematocrit 40.1 % (37.0-47.0); Hemoglobin 13.5 g/dl (12.0-16.0); Imm Gran Abs Auto 0.01 X10*3/uL (0.00-0.03); Imm Gran Pct Auto 0.1 % (0.0-0.4); Lymphocytes Absolute Auto 2.5 X10*3/uL (1.2-4.9); Mean Corpuscular HGB Conc 33.7 g/dl (31.0-35.0); Mean Corpuscular Hemoglobin 28.0 pg (27.0-33.0); Mean Corpuscular Volume 83.2 fL (80.0-98.0); NRBC Abs Auto 0.000 X10*3/uL (0.0-0.012); NRBC Pct Auto 0.0 /100WBC (0.0-0.2); Platelet Count 304 X10*3/uL (160-400); Red Blood Count 4.82 X10*6/uL (4.20-5.50); White Blood Count 6.7 X10*3/uL (4.8-10.8)
[2025-01-31 06:41] LABS: Alanine Aminotransferase 24 U/L (0-31); Albumin Level 5.0 g/dL (3.5-5.0); Alkaline Phosphatase 71 U/L (39-117); Anion Gap 13 (12-20); Aspartate Amino Transferase 23 U/L (5-31); Blood Urea Nitrogen 15 mg/dL (9-16); Calcium 9.0 mg/dL (8.4-10.2); Carbon Dioxide 19 mmol/L (22-29); Chloride 112 mmol/L (96-108); Creatinine Clr Calc Pharmacy 198.1; Estimated Glomerular Filt Rate > 60; Potassium 4.0 mmol/L (3.3-5.1); Sodium 140 mmol/L (135-145); Total Protein 7.2 g/dL (6.5-8.0)
[2025-01-31 06:43] LABS: OBS Int Ctl Valid YES; OBS1 POSITIVE (NEGATIVE)
[2025-01-31 06:53] LABS: Appearance Urine Clear; Glucose Urine UA Negative (Negative); PH 7.0 (5.0-9.0); Specific Gravity - Urine <= 1.005 (1.005-1.025)
[2025-01-31 07:21] LABS: UPreg QC Valid YES
[2025-01-31] MEDS: iohexoL 350 MG/ML 100 ML INFUS..BTL IV (08:17)
[2025-01-31 09:20] LABS: MANUAL DIFF FLAG NO
[2025-01-31 09:21] LABS: Hematocrit 36.9 % (37.0-47.0); Hemoglobin 12.7 g/dl (12.0-16.0); Imm Gran Abs Auto 0.01 X10*3/uL (0.00-0.03); Imm Gran Pct Auto 0.2 % (0.0-0.4); Lymphocytes Absolute Auto 2.3 X10*3/uL (1.2-4.9); Mean Corpuscular HGB Conc 34.4 g/dl (31.0-35.0); Mean Corpuscular Hemoglobin 28.4 pg (27.0-33.0); Mean Corpuscular Volume 82.6 fL (80.0-98.0); NRBC Abs Auto 0.000 X10*3/uL (0.0-0.012); NRBC Pct Auto 0.0 /100WBC (0.0-0.2); Platelet Count 264 X10*3/uL (160-400); Red Blood Count 4.47 X10*6/uL (4.20-5.50); White Blood Count 6.4 X10*3/uL (4.8-10.8)
--- NOTE | 2025-01-31 11:30 | PHA.MEDREC ---
Addendum entered by Andrea Sandoval PharmD 01/31/25 11:32: reviewed Original Note: Pharmacy Consult ? Medication Reconciliation Pharmacy has completed the medication reconciliation. Spoke with pt and she confirmed her medications. Pt confirmed she still taking Cromolyn QID, had that med on hand and confirmed she took a dose of that this morning @0200.
--- NOTE | 2025-01-31 15:23 | PM.GICN ---
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 Patient reports that around 2 weeks ago, she started noticing lower pelvic plain and cramping. Yesterday morning pain became sharper and localized mostly in the right lower side associated with multiple episodes of bright red blood bleeding with normal colored stool. This morning, she also experienced lightheadedness and dizziness with the pain and therefore decided to seek medical attention. Does not report any outside food consumption, no sick contacts, does not take blood thinners or NSAIDs. She reports having a colonoscopy last year at [facility]. In the emergency room, she was noted to have stable vitals. Labs without leukocytosis or significant anemia. Chem 7 with normal renal and liver function. test negative. CT abdomen pelvis with IV contrast shows possible left sided colon wall thickening. In addition, it also shows small amount of free fluid in the pelvis with concern for ruptured ovarian cyst. Review of Systems Review of Systems: Yes all other systems are reviewed and are negative PMFSH Past Medical History Medical History Vapes nicotine containing substance History of febrile seizure Fatty liver Bipolar disorder History of supraventricular tachycardia GERD (gastroesophageal reflux disease) Surgical History Surgical History History of surgery on right wrist History of ankle surgery History of tubal ligation History of radiofrequency ablation (RFA) procedure for cardiac arrhythmia Social History Social History Are you a primary vision care associate to a significant other at home: Yes Do you presently have visiting nurse or other home services: No Comment: ok with 2 Patient Tobacco Use Status: Never used Tobacco Tobacco use type: Smokeless Tobacco Smoked in Last 30 Days: No Use of substances other than those prescribed or required for medical reasons: Yes Substance Use Type: Marijuana Advance Directives: No Advance Directives Information Provided: No Do you have a plan to hurt others: No Plan Nutrition Risks: No Nutritional Risk Patient : No Meds Allergies Allergy/AdvReac Type Severity Reaction Status Date / Time metoclopramide Allergy Itching Verified 01/31/25 05:40 promethazine (From Phenergan) Allergy Redness of Verified 01/31/25 05:40 Skin, itching Active Medications: Current Medications Polyethylene Glycol/Electrolytes (Peg 3350/Na Sulf,Bicarb,Cl/Kcl 4,000 Ml Soln.Recon) 4,000 ml PO ONCE ONE Stop: 01/31/25 16:01 Home Medications ?Medication ?Instructions ?Recorded ?Confirmed ?Last Taken ?Type cromolyn 100 mg/5 mL oral 300 mg PO QID 01/31/25 01/31/25 01/31/25 02:00 History concentrate esomeprazole magnesium 40 mg 40 mg PO DAILY@0630 01/31/25 01/31/25 01/30/25 History capsule,delayed release fexofenadine 180 mg tablet 180 mg PO BID 01/31/25 01/31/25 01/30/25 History montelukast 10 mg tablet 10 mg PO DAILY 01/31/25 01/31/25 01/30/25 History Physical Exam Exam: Exam: Young female No acute distress Nonicteric Abdomen soft, nontender, nondistended, no guarding Respiratory distress Alert and oriented x3, no focal deficits Vital Signs: Vital Signs: Last Vital Signs Temp 98.2 F 01/31/25 12:27 Pulse 74 01/31/25 12:27 Resp 18 01/31/25 07:56 BP 115/76 01/31/25 12:27 Pulse Ox 100 01/31/25 12:27 O2 Del Method Room Air 01/31/25 12:27 BMI result Body Mass Index 55.8 Results Labs 01/31/25 09:17 01/31/25 06:16 Labs: Short CBC 01/31/25 01/31/25 Range/Units 06:16 09:17 WBC 6.7 6.4 (4.8-10.8) X10*3/uL Hgb 13.5 12.7 (12.0-16.0) g/dl Hct 40.1 36.9 L (37.0-47.0) % Plt Count 304 264 (160-400) X10*3/uL BMP 01/31/25 06:16 Sodium 140 Potassium 4.0 Chloride 112 H Carbon Dioxide 19 L BUN 15 Creatinine 0.60 Calcium 9.0 Liver Function 01/31/25 Range/Units 06:16 Total Bilirubin 0.3 (0.0-1.0) mg/dL AST 23 (5-31) U/L ALT 24 (0-31) U/L Alkaline Phosphatase 71 (39-117) U/L Albumin 5.0 (3.5-5.0) g/dL Urine 01/31/25 Range/Units 06:18 Urine Color Yellow Urine Appearance Clear Urine pH 7.0 (5.0-9.0) Ur Specific [place] <= 1.005 (1.005-1.025) Urine Protein Negative (Neg-Trace) mg/dL Urine Glucose (UA) Negative (Negative) mg/dL Assessment and Plan (1) Bright red rectal bleeding: Status: Acute (2) Abdominal pain: Status: Acute (3) Pelvic ascites: Status: Acute Plan Suspect the lower abdominal pain and cramping may have been related to possible ovarian cyst rupture. In terms of rectal bleeding x 1 day, differentials include infectious colitis, hemorrhoidal bleeding, colon ischemia, inflammatory colitis. Plan: -agree with clear liquid diet today, NPO after midnight -colonoscopy tentatively planned for tomorrow -PEG prep ordered. -may need appliance painter and refinisher evaluation for ruptured ovarian cyst Thank you for allowing me to participate in her care. Please do not hesitate to reach out for any questions or concerns. Procedures Date of Service Date of Service: 01/31/25
--- NOTE | 2025-01-31 17:50 | PM.IMHP ---
History of Present Illness Date of Service: 01/31/25 Attending physician on admission: Hema Miller Chief Complaint: Bright red blood per rectum Pt is a 34-year-old female with a PMH significant for?inappropriate sinus tachycardia, SVT s/p ablation 2017, POTS, hemorrhoids, and anxiety who presents to the ED for evaluation of painless bright red blood per rectum x2 days. Symptoms began yesterday when pt noticed bright red blood in the toilet after urinating. Pt initially thought she has having her menses, but noticed that blood was coming from her rectum rather than vagina. Pt has been experiencing lower abdominal/pelvic pressure for the past 2 weeks, but no jeyson abdominal pain. Pt continues to experience bleeding yesterday and again this morning. Bleeding would noticed bleeding both with wiping and with bowel movements. This morning pt experienced episode of feeling cold, clammy, and lightheaded after bloody bowel movement which prompted her visit to the emergency room. Pt denies significant use of NSAIDs. No fever. Reports a family hx of colon cancer and polyps. Also reports had a colonoscopy 1-2 years ago, though report not currently available. States they did find polyps that were sampled but were benign. Pt also reports an unintentional 100 lb weight loss in the past 6 months. States she has been experiencing chronic nausea, vomiting, and reduced p.o. intake during this time. In the ED pt's vitals stable. Labs significant for H&H with mild drop from 13.5-->12.7. No significant electrolyte abnormalities. No leukocytosis. UA negative for UTI. Stool positive for occult blood. CT of abdomen/pelvis showed questionable acute inflammatory process involving left hemicolon, [id number] volume ascites, cul-de-sac and retroverted flexion positioning of uterus with recent rupture of ovarian cyst vs endometrioma. Transvaginal pelvic ultrasound showed moderate amount of free fluid in the pelvis with a 1.7 cm right ovarian involuting follicle or ruptured cyst. Pt was treated in the ED with IVF. Pt is admitted to the hospital for bright red blood per rectum concerning for lower GI bleed. Review of Systems Review of Systems: Yes all other systems are reviewed and are negative PMFSH Medical History Vapes nicotine containing substance History of febrile seizure Fatty liver Bipolar disorder History of supraventricular tachycardia GERD (gastroesophageal reflux disease) Surgical History History of surgery on right wrist History of ankle surgery History of tubal ligation History of radiofrequency ablation (RFA) procedure for cardiac arrhythmia Social History Household Members: Family Housing: House Are you a primary prompt care rn to a significant other at home: Yes Do you presently have visiting nurse or other home services: No Comment: ok with 2 Patient Tobacco Use Status: Never used Tobacco Tobacco use type: Smokeless Tobacco Substance Use Type: Marijuana Meds Allergies Allergy/AdvReac Type Severity Reaction Status Date / Time metoclopramide Allergy Itching Verified 01/31/25 05:40 promethazine (From Phenergan) Allergy Redness of Verified 01/31/25 05:40 Skin, itching Active Medications: Current Medications Lorazepam (Lorazepam 0.5 Mg Tablet) 0.5 mg PO Q8H PRN PRN Reason: Anxiety Home Medications ?Medication ?Instructions ?Recorded ?Confirmed ?Last Taken ?Type cromolyn 100 mg/5 mL oral 300 mg PO QID 01/31/25 01/31/25 01/31/25 02:00 History concentrate esomeprazole magnesium 40 mg 40 mg PO DAILY@0630 01/31/25 01/31/25 01/30/25 History capsule,delayed release fexofenadine 180 mg tablet 180 mg PO BID 01/31/25 01/31/25 01/30/25 History montelukast 10 mg tablet 10 mg PO DAILY 01/31/25 01/31/25 01/30/25 History Physical Exam Vital Signs and Narrative: Vital Signs: Last Vital Signs Temp 98.4 F 01/31/25 17:49 Pulse 68 01/31/25 17:49 Resp 18 01/31/25 17:49 BP 106/56 L 01/31/25 17:49 Pulse Ox 99 01/31/25 17:49 O2 Del Method Room Air 01/31/25 17:49 BMI result Body Mass Index 27.3 Results Labs 01/31/25 09:17 01/31/25 06:16 Labs: Laboratory Results - last 24 hr 01/31/25 01/31/25 01/31/25 06:16 06:18 09:17 MCV 83.2 82.6 MCH 28.0 28.4 MCHC 33.7 34.4 RDW 11.9 12.2 Plt Count 304 264 MPV 9.7 9.7 Immature Gran % (Auto) 0.1 0.2 Neut % (Auto) 53.4 55.0 Lymph % (Auto) 37.6 35.4 [place] % (Auto) 7.6 8.2 Eos % (Auto) 1.0 0.9 Baso % (Auto) 0.3 0.3 Lymph # (Auto) 2.5 2.3 [place] # (Auto) 0.5 0.5 Eos # (Auto) 0.1 0.1 Baso # (Auto) 0.0 0.0 Abs Immat Gran (auto) 0.01 0.01 Absolute Neuts (auto) 3.6 3.5 Absolute Nucleated RBC 0.000 0.000 Nucleated RBC % (auto) 0.0 0.0 Anion Gap 13 Estim Creat Clear Calc 198.1 Estimated GFR > 60 Random Glucose 97 Calcium 9.0 Total Bilirubin 0.3 AST 23 ALT 24 Alkaline Phosphatase 71 Total Protein 7.2 Albumin 5.0 Urine Color Yellow Urine Appearance Clear Urine pH 7.0 Ur Specific [place] <= 1.005 Urine Protein Negative Urine Glucose (UA) Negative Urine Ketones Negative Urine Blood Negative Urine Nitrite Negative Ur Leukocyte Esterase Negative Urine Test NEGATIVE Stool Occult Blood POSITIVE Imaging Radiologist's Impressions: Impressions Abdomen/Pelvis CT 01/31/25 08:05 IMPRESSION: Questionable acute inflammatory processes involving the left hemicolon versus collapsed left hemicolon. Small to moderate volume of ascites, cul-de-sac and retroverted flexion position of the uterus. Recent rupture ovarian cyst versus endometriosis cannot be excluded. Bilateral nonobstructing nephrolithiasis. Fleischner guidelines were followed. Electronically signed by: Warren Echavarria MD 01/31/2025 08:29 AM EST RP Doppler Study Ultrasound 01/31/25 12:32 IMPRESSION: Moderate amount of free fluid in the pelvis. 1.7 cm right ovarian involuting follicle or ruptured cyst. Electronically signed by: Behzad Stokes MD 01/31/2025 01:09 PM EST RP Pelvic/Transvag US 01/31/25 12:32 IMPRESSION: Moderate amount of free fluid in the pelvis. 1.7 cm right ovarian involuting follicle or ruptured cyst. Electronically signed by: Behzad Stokes MD 01/31/2025 01:09 PM EST Assessment and Plan (1) Rectal bleeding: Status: Acute Plan Pt is a 34-year-old female with a PMH significant for?inappropriate sinus tachycardia, SVT s/p ablation 2017, POTS, hemorrhoids, asthma, and anxiety who presents to the ED for evaluation of painless bright red blood per rectum x2 days. Pt is admitted to the hospital for bright red blood per rectum concerning for lower GI bleed. Bright blood red per rectum Painless, ongoing x2 days Concern for lower GI bleed vs hemorrhoids Family hx of colon cancer; pt with previous colonoscopy with benign polyps GI consult, plan for colonoscopy tomorrow morning Clear liquid diet now, NPO after midnight, GoLYTELY bowel prep Will check GI panel, C diff, fecal calprotectin, CRP H&H and vitals currently stable, follow CBC Question of ruptured ovarian cyst Pt with lower abd/pelvic pressure x2 weeks Transvaginal pelvic ultrasound showed moderate amount of free fluid in pelvis in 1.7 cm right ovarian involuting follicle or ruptured cyst Follow up with RELIGIOUS EDUCATION COORDINATOR Mild intermittent asthma Not in acute exacerbation Continue montelukast GERD Continue PPI Full Code Attending:?Dr. Plunkett DVT Prophylaxis: Pneumatic compression due to concerns for LGIB Pt will be admitted to the hospital under observation for treatment and further evaluation of bright red blood per rectum concerning for GI bleed vs hemorrhoids requiring close evaluation of labs and vitals, as well as colonoscopy in the morning. Quality Stroke Does the patient have a stroke diagnosis?: No VTE Prior VTE?: No VTE Risk Level:: Medical - moderate - high VTE Device Contraindication: N/A - Device Ordered VTE Drug Contraindication: Treatment Not Indicated
[2025-01-31] MEDS: PEG 3350/Na Sulf,Bicarb,Cl/KCL 4,000 ML SOLN.RECON 4000 ML PO (17:57)
[2025-01-31] MEDS: 0.9 % Sodium Chloride Flush 3 ML SYRINGE IVFLUSH (21:29)
[2025-02-01] VITALS (7 sets, daily range): BP systolic 90–122; BP diastolic 32–80; PULSE 64–76; RESP 12–18; TEMP 36.2–37.1; O2SAT 97–100
--- NOTE | 2025-02-01 06:27 | PC.NURSE ---
0615- NPO maintained since midnight for planned colonoscopy procedure. Patient tolerated all but one cup full of prep, noted to have 10 or so liquid brown stools with some blood mixed in. Noted by morning last stool light yellow in color with just drops of blood. Stool spec was obtained and sent 1914 last night by this medical writer and results show c-diff negative and stool panel pending. Pt awake this am, aware of procedure routine as she has had colonoscopies previously. No stated pain or discomforts, just intermittent cramping. Prn #20 gauge angio to left hand, lung padilla clear, o2 sat level 97-99% room air.
[2025-02-01 06:37] LABS: Anion Gap 13 (12-20); Blood Urea Nitrogen 8 mg/dL (9-16); Calcium 8.9 mg/dL (8.4-10.2); Carbon Dioxide 23 mmol/L (22-29); Chloride 110 mmol/L (96-108); Creatinine Clr Calc Pharmacy 127.0; Estimated Glomerular Filt Rate > 60; Hematocrit 39.8 % (37.0-47.0); Hemoglobin 13.4 g/dl (12.0-16.0); Mean Corpuscular HGB Conc 33.7 g/dl (31.0-35.0); Mean Corpuscular Hemoglobin 28.3 pg (27.0-33.0); Mean Corpuscular Volume 84.0 fL (80.0-98.0); NRBC Abs Auto 0.000 X10*3/uL (0.0-0.012); NRBC Pct Auto 0.0 /100WBC (0.0-0.2); Platelet Count 281 X10*3/uL (160-400); Potassium 3.7 mmol/L (3.3-5.1); Red Blood Count 4.74 X10*6/uL (4.20-5.50); Sodium 142 mmol/L (135-145); White Blood Count 6.0 X10*3/uL (4.8-10.8)
--- NOTE | 2025-02-01 08:16 | HO.ANESPROP2 ---
Documented by User: Kinsey Roland NP 02/01/25 08:28 HPI - Anesthesia Eval Consult details Narrative: 34 yr old female for colonoscopy H/O SVT/POTS: s/p ablation in 2017 H/O narrow complex tachycardia at 220 beats documented and she actually required a cardioversion when she was Asthma +vapting nicotine GERD PMFSH Active Problems Active Problems: All Active Problems Ovarian cyst (Acute) Pelvic ascites (Acute) Abdominal pain (Acute) Bright red rectal bleeding (Acute) Rectal bleeding (Acute) Biliary colic (Acute) Nonalcoholic steatohepatitis (RUSHING) (Acute) Morbid (severe) obesity due to excess calories (Acute) Vomiting (Acute) Abnormality in other liver function test (Acute) Family history of cancer of gallbladder (Acute) Past Medical History Medical History Vapes nicotine containing substance History of febrile seizure Fatty liver Bipolar disorder History of supraventricular tachycardia GERD (gastroesophageal reflux disease) Family History Family history of problems with anesthesia: No Surgical History Surgical History History of surgery on right wrist History of ankle surgery History of tubal ligation History of radiofrequency ablation (RFA) procedure for cardiac arrhythmia History of Problems with Anesthesia: No Social History Social History Household Members: Family Housing: House Are you a primary child care leader to a significant other at home: Yes Do you presently have visiting nurse or other home services: No Comment: ok with 2 Patient Tobacco Use Status: Never used Tobacco Tobacco use type: Smokeless Tobacco Substance Use Type: Marijuana Meds Allergies Allergy/AdvReac Type Severity Reaction Status Date / Time metoclopramide Allergy Itching Verified 01/31/25 05:40 promethazine (From Phenergan) Allergy Redness of Verified 01/31/25 05:40 Skin, itching Active Medications: Current Medications Acetaminophen (Acetaminophen 325 Mg Tablet) 650 mg PO Q6H PRN PRN Reason: Pain, Mild 1-3,fever,headache Calcium Carbonate (Calcium Carbonate 750 Mg Tab.Chew) 750 mg PO Q4H PRN PRN Reason: Heartburn Loratadine (Loratadine 10 Mg Tablet) 10 mg PO BID BEAN Last Admin: 01/31/25 21:25 Dose: Not Given Lorazepam (Lorazepam 0.5 Mg Tablet) 0.5 mg PO Q8H PRN PRN Reason: Anxiety Magnesium Hydroxide (Milk Of Magnesia 30 Ml Oral.Susp) 30 ml PO DAILY PRN PRN Reason: Constipation Melatonin (Melatonin 3 Mg Tablet) 6 mg PO BEDTIME PRN PRN Reason: Insomnia Montelukast Sodium (Montelukast Sodium 10 Mg Tablet) 10 mg PO DAILY [facility] Pt Own (Cromolyn 100 Mg/5 Ml Concentrate ) 300 mg PO QID [facility] Last Admin: 01/31/25 21:24 Dose: Not Given Omeprazole (Omeprazole 20 Mg Capsule.Dr) 20 mg PO DAILY@629 [facility] Last Admin: 02/01/25 05:40 Dose: Not Given Ondansetron HCl (Ondansetron Hcl 4 Mg/2 Ml Vial) 4 mg IVPUSH Q8H PRN PRN Reason: Nausea and Vomiting Sodium Chloride (0.9 % Sodium Chloride Flush 3 Ml Syringe) 3 ml IVFLUSH QSHIFT [facility] Last Admin: 01/31/25 21:29 Dose: 3 ml Home Medications ?Medication ?Instructions ?Recorded ?Confirmed ?Last Taken ?Type cromolyn 100 mg/5 mL oral 300 mg PO QID 01/31/25 01/31/25 01/31/25 02:00 History concentrate esomeprazole magnesium 40 mg 40 mg PO DAILY@0630 01/31/25 01/31/25 01/30/25 History capsule,delayed release fexofenadine 180 mg tablet 180 mg PO BID 01/31/25 01/31/25 01/30/25 History montelukast 10 mg tablet 10 mg PO DAILY 01/31/25 01/31/25 01/30/25 History Exam Height,Weight and Vital Signs: Height 5 ft 5 in Weight 74.4 kg Last Vital Signs Temp 97.2 F 02/01/25 07:26 Pulse 71 02/01/25 07:26 Resp 16 02/01/25 07:26 BP 116/59 L 02/01/25 07:26 Pulse Ox 100 02/01/25 07:26 O2 Del Method Room Air 02/01/25 07:26 Pertinent Lab Results Pertinent Lab Results: Laboratory Tests 01/31/25 01/31/25 01/31/25 06:16 06:18 09:17 WBC 6.7 6.4 RBC 4.82 4.47 Hgb 13.5 12.7 Hct 40.1 36.9 L MCV 83.2 82.6 MCH 28.0 28.4 MCHC 33.7 34.4 RDW 11.9 12.2 Plt Count 304 264 MPV 9.7 9.7 Immature Gran % (Auto) 0.1 0.2 Neut % (Auto) 53.4 55.0 Lymph % (Auto) 37.6 35.4 [place] % (Auto) 7.6 8.2 Eos % (Auto) 1.0 0.9 Baso % (Auto) 0.3 0.3 Lymph # (Auto) 2.5 2.3 [place] # (Auto) 0.5 0.5 Eos # (Auto) 0.1 0.1 Baso # (Auto) 0.0 0.0 Abs Immat Gran (auto) 0.01 0.01 Absolute Neuts (auto) 3.6 3.5 Absolute Nucleated RBC 0.000 0.000 Nucleated RBC % (auto) 0.0 0.0 Sodium 140 Potassium 4.0 Chloride 112 H Carbon Dioxide 19 L Anion Gap 13 BUN 15 Creatinine 0.60 Estim Creat Clear Calc 198.1 Estimated GFR > 60 Random Glucose 97 Calcium 9.0 Total Bilirubin 0.3 AST 23 ALT 24 Alkaline Phosphatase 71 C-Reactive Protein < 0.10 Total Protein 7.2 Albumin 5.0 Urine Color Yellow Urine Appearance Clear Urine pH 7.0 Ur Specific [place] <= 1.005 Urine Protein Negative Urine Glucose (UA) Negative Urine Ketones Negative Urine Blood Negative Urine Nitrite Negative Ur Leukocyte Esterase Negative Urine Test NEGATIVE Stool Occult Blood POSITIVE C. difficile Tox B Gene 01/31/25 02/01/25 19:00 05:47 WBC 6.0 RBC 4.74 Hgb 13.4 Hct 39.8 MCV 84.0 MCH 28.3 MCHC 33.7 RDW 12.1 Plt Count 281 MPV 10.2 Immature Gran % (Auto) Neut % (Auto) Lymph % (Auto) [place] % (Auto) Eos % (Auto) Baso % (Auto) Lymph # (Auto) [place] # (Auto) Eos # (Auto) Baso # (Auto) Abs Immat Gran (auto) Absolute Neuts (auto) Absolute Nucleated RBC 0.000 Nucleated RBC % (auto) 0.0 Sodium 142 Potassium 3.7 Chloride 110 H Carbon Dioxide 23 Anion Gap 13 BUN 8 L Creatinine 0.63 Estim Creat Clear Calc 127.0 Estimated GFR > 60 Random Glucose 84 Calcium 8.9 Total Bilirubin AST ALT Alkaline Phosphatase C-Reactive Protein Total Protein Albumin Urine Color Urine Appearance Urine pH Ur Specific [place] Urine Protein Urine Glucose (UA) Urine Ketones Urine Blood Urine Nitrite Ur Leukocyte Esterase Urine Test Stool Occult Blood C. difficile Tox B Gene NEGATIVE Assessment and Plan Final Anesthetic Review Family History of Problems with Anesthesia: No History of Problems with Anesthesia: No Documented by User: Gladys Aranda MD 02/01/25 12:30 [facility] Past Medical History Medical History Vapes nicotine containing substance History of febrile seizure Fatty liver Bipolar disorder History of supraventricular tachycardia GERD (gastroesophageal reflux disease) Surgical History Surgical History History of surgery on right wrist History of ankle surgery History of tubal ligation History of radiofrequency ablation (RFA) procedure for cardiac arrhythmia Social History Social History Household Members: Family Housing: House Are you a primary child care leader to a significant other at home: Yes Do you presently have visiting nurse or other home services: No Comment: ok with 2 Patient Tobacco Use Status: Never used Tobacco Tobacco use type: Smokeless Tobacco Substance Use Type: Marijuana Meds Allergies Allergy/AdvReac Type Severity Reaction Status Date / Time metoclopramide Allergy Itching Verified 01/31/25 05:40 promethazine (From Phenergan) Allergy Redness of Verified 01/31/25 05:40 Skin, itching Home Medications ?Medication ?Instructions ?Recorded ?Confirmed ?Last Taken ?Type cromolyn 100 mg/5 mL oral 300 mg PO QID 01/31/25 01/31/25 01/31/25 02:00 History concentrate esomeprazole magnesium 40 mg 40 mg PO DAILY@0630 01/31/25 01/31/25 01/30/25 History capsule,delayed release fexofenadine 180 mg tablet 180 mg PO BID 01/31/25 01/31/25 01/30/25 History montelukast 10 mg tablet 10 mg PO DAILY 01/31/25 01/31/25 01/30/25 History Exam Airway Mallampati Class: II TM Dist: >3cm Neck ROM: Full Heart: rrr Lungs: cta Assessment and Plan Assessment Anesthesia Assessment: Anesthesia Plan Discussed and Chart Reviewed Final Anesthetic Review NPO: Yes ASA Class: II Final Preanesthetic Review: No Changes in Pt Med Stat, Meds/Allgs Chart Reviewed, Consent Obtained/Reviewed and Anes Risks/Benef Reviewed Patient Risk: Intermediate Procedure Risk: Low Anesthetic Plan Anesthetic Plan: MAC: and Agree w/ Assess. and Plan Disposition: Standard PACU
[2025-02-01 10:53] LABS: E. coli EAEC Not Detected (Not Detect.); E. coli EPEC Not Detected (Not Detect.); E. coli ETEC Not Detected (Not Detect.); E. coli STEC Not Detected (Not Detect.); Shigella sp./EIEC Not Detected (Not Detect.)
[2025-02-01] MEDS: Lactated Ringers 1,000 ML 100 ML IVCONT (11:19)
--- NOTE | 2025-02-01 12:23 | MHC.SHP ---
Pre-Procedural Eval Section A - 24 Hr Update-Section A only Date of Service: 02/01/25 The patient is an INPATIENT: Yes The patient has been examined within 24 hours of the surgical procedure. The History & Physical has been completed within 30 days and I have reviewed it.: Yes Section B - Complete if H&P > 30 days Chief Complaint: bright red blood per rectum Allergies: Allergies Allergy/AdvReac Type Severity Reaction Status Date / Time metoclopramide Allergy Itching Verified 01/31/25 05:40 promethazine (From Phenergan) Allergy Redness of Verified 01/31/25 05:40 Skin, itching Plan Diagnosis/Plan: Unchanged I have reviewed the history and physical and performed a pertinent physical examination on my patient. No changes have occurred unless specified. Time Spent With Patient Time: Total time managing care of this patient today ____ minutes.
--- NOTE | 2025-02-01 13:04 | P.OPN-COLO_ITS ---
Colonoscopy Operative Note Operative Note Date of Service: 02/01/25 Narrative: Procedure: Colonoscopy Indication: GI bleeding Endoscopist: Annette Cruz MD Anesthesia Provider: Noemi Allison CRNA Anesthesia type: MAC Instrument: Olympus [id number]-[id number] Consent: Indication, risks vs benefits, and alternatives were discussed with the patient who gave written informed consent to proceed. EKG, pulse, pulse oximetry and blood pressure were monitored throughout the procedure. Please see anesthesia flowsheet. Procedure: The patient was brought to the procedure room and placed in the left lateral decubitus position. IV medications were administered by the anesthesia provider in attendance. A digital rectal exam was performed which was abnormal due to finding of hemorrhoids. A distal attachment cap was affixed to the tip of the colonoscope which was then inserted through the anus and advanced through the colon to the cecum at 70 cm,and terminal ileum. Appendiceal orifice and ileocecal valve were identified. Mucosa was carefully examined under high definition white light as the instrument was slowly withdrawn in a retrograde panoramic fashion. Retroflexion was performed in rectum. The procedure was not difficult. There were no immediate obvious complications. The quality of the prep was BBPS: 3+3+3 = adequate Withdrawal time 6 minutes. Limitations: No limitations Findings: Mucosa: Normal to cecum and terminal ileum. Protruding lesions: * 1 sessile polyp of size 6 mm in sigmoid colon. Cold snare polypectomy was performed. The polyp was completely removed and retrieved. * Large internal hemorrhoids with stigmata of recent bleeding. Impression: 1. Normal colon mucosa 2. Total of 1 polyp removed 3. External and internal hemorrhoids with stigmata of recent bleeding. Recommendations: - Follow path results. - Repeat colonoscopy in 7-10 years for polyp surveillance.
--- NOTE | 2025-02-01 15:05 | PM.DS ---
DS: Providers Provider Date of Service: 02/01/25 Date of admission: 01/31/25 10:43 Date of discharge: 02/01/25 Primary care physician: Unknown Physician Consults: 01/31/25 11:19 Consult to Gastroenterology Routine Consulting Provider: Annette Cruz Reason for consultation: Rectal bleeding DS: Diagnosis Discharge Diagnosis (1) Rectal bleeding: Status: Acute DS: Summary Hospital Course Hospital Course: From admission HPI: Date of Service: 01/31/25 Attending physician on admission: Hema Miller Chief Complaint: Bright red blood per rectum Pt is a 34-year-old female with a PMH significant for?inappropriate sinus tachycardia, SVT s/p ablation 2017, POTS, hemorrhoids, and anxiety who presents to the ED for evaluation of painless bright red blood per rectum x2 days. Symptoms began yesterday when pt noticed bright red blood in the toilet after urinating. Pt initially thought she has having her menses, but noticed that blood was coming from her rectum rather than vagina. Pt has been experiencing lower abdominal/pelvic pressure for the past 2 weeks, but no jeyson abdominal pain. Pt continues to experience bleeding yesterday and again this morning. Bleeding would noticed bleeding both with wiping and with bowel movements. This morning pt experienced episode of feeling cold, clammy, and lightheaded after bloody bowel movement which prompted her visit to the emergency room. Pt denies significant use of NSAIDs. No fever. Reports a family hx of colon cancer and polyps. Also reports had a colonoscopy 1-2 years ago, though report not currently available. States they did find polyps that were sampled but were benign. Pt also reports an unintentional 100 lb weight loss in the past 6 months. States she has been experiencing chronic nausea, vomiting, and reduced p.o. intake during this time. In the ED pt's vitals stable. Labs significant for H&H with mild drop from 13.5-->12.7. No significant electrolyte abnormalities. No leukocytosis. UA negative for UTI. Stool positive for occult blood. CT of abdomen/pelvis showed questionable acute inflammatory process involving left hemicolon, [id number] volume ascites, cul-de-sac and retroverted flexion positioning of uterus with recent rupture of ovarian cyst vs endometrioma. Transvaginal pelvic ultrasound showed moderate amount of free fluid in the pelvis with a 1.7 cm right ovarian involuting follicle or ruptured cyst. Pt was treated in the ED with IVF. Pt is admitted to the hospital for bright red blood per rectum concerning for lower GI bleed. Hospital Course Pt was admitted to the hospital painless bright red blood per rectum concerning for lower GI bleed vs hemorrhoids. pt had multiple episodes of bleeding while in ED as well as overnight while in the hospital. C diff and GI panel were negative. She was seen and evaluated by GI and underwent a colonoscopy on 02/01 which showed normal colon mucosa, 1 sessile 6mm polyp, and both external and internal hemorrhoids; internal hemorrhoids were noted to be large and with a stigmata of recent bleeding. Polyp was removed with cold snare polypectomy and sample sent to pathology. Pt's H&H was stable during hospital stay, and at time of discharge had had no recent episodes of rectal bleeding. pt is set to follow up with Dr. Cruz in GI for pathology results, as well as possible workup for chronic GI upset and diarrhea. She has also been referred to [facility] [place] general surgery for possible internal hemorrhoid rubber band ligation that can be performed in the office. Pt should follow up with your PCP in 1 week for routine blood work as well as post hospitalization visit. Pt also had incidental finding on transvaginal ultrasound of a question of ruptured ovarian cyst. She should follow up with her [employer]. pt should otherwise continue all of her other home medications. Time Attestation Discharge Coordination Time (in mins): 35 Quality: Safe Use of Opioids Does Pt have an Active Cancer Diagnosis on the Problem List?: No Quality: Stroke Does the patient have a stroke diagnosis?: No Physical Exam Exam: Exam: General: AOx3, no acute distress Resp: CTA bilaterally CVS: S1, S2, RRR GI: +BS, NT, no distention Skin: Warm, dry Neuro: Cranial nerves II-XII grossly intact bilaterally. Motor grossly intact bilaterally Extremities: No edema Psych: Appropriate affect Vital Signs: Vital Signs: Last Vital Signs Temp 97.1 F 02/01/25 14:05 Pulse 64 02/01/25 14:05 Resp 18 02/01/25 14:05 BP 122/77 02/01/25 14:05 Pulse Ox 97 02/01/25 14:05 O2 Del Method Room Air 02/01/25 14:05 BMI result Body Mass Index 27.3 DS: Data Data Completed and Pending Pending studies at discharge: Pending at discharge 02/01/25 13:04 Surgical [PTH] Routine Labs on day of discharge: Laboratory Results - last 24 hr 01/31/25 01/31/25 02/01/25 06:16 19:00 05:47 WBC 6.0 RBC 4.74 Hgb 13.4 Hct 39.8 MCV 84.0 MCH 28.3 MCHC 33.7 RDW 12.1 Plt Count 281 MPV 10.2 Absolute Nucleated RBC 0.000 Nucleated RBC % (auto) 0.0 Sodium 142 Potassium 3.7 Chloride 110 H Carbon Dioxide 23 Anion Gap 13 BUN 8 L Creatinine 0.63 Estim Creat Clear Calc 127.0 Estimated GFR > 60 Random Glucose 84 Calcium 8.9 C-Reactive Protein < 0.10 Stl C. cayetanensis PCR Not Detected Stool Rotavirus A PCR Not Detected Stl Adenov F 40/41 PCR Not Detected Stool Astrovirus (PCR) Not Detected Stool Campylobacter PCR Not Detected Stool Cryptosporidium PCR Not Detected Stl Sh Tox Pr E STEC PCR Not Detected Stool E coli O157 PCR Not applicable Stl Enterotoxigenic E PCR Not Detected Stool EPEC (PCR) Not Detected Stool EAEC (PCR) Not Detected Stl E. histolytica PCR Not Detected Stool Giardia Lamblia PCR Not Detected Stl P. shigelloides PCR Not Detected Stool Salmonella PCR Not Detected Stool Sapovirus (PCR) Not Detected Stl Shigella/EIEC PCR Not Detected St Y.enterocolitica PCR Not Detected Stool Vibrio (PCR) Not Detected Stl Vibrio cholerae PCR Not Detected Stl Norovirus GI/GII PCR Not Detected C. difficile Tox B Gene NEGATIVE Discharge Plan Discharge Anticipated Discharge Date/Time: 02/01/25 14:55 Patient Disposition: Home, Self-Care Discharge Diagnosis: Bright red blood per rectum Referrals: [facility] General Surgeons [Provider Group, General Surgery] - 1 Week Referral Note: Hx of bleeding internal Hemorrhoids. referral for rubber-band ligation Physician,Olga Lidia Fu [Primary Care Provider, Medical] - 1 Week Annette Cruz MD [Physician, Gastroenterology] - 1 Week Referral Note: F/U for bright red blood per rectum and colonoscopy on 02/01/2025 Discharge Medications: Continued cromolyn 100 mg/5 mL concentrate 300 mg PO QID fexofenadine 180 mg tablet 180 mg PO BID montelukast 10 mg tablet 10 mg PO DAILY esomeprazole magnesium 40 mg Capsule,Delayed Release(Dr/Ec) 40 mg PO DAILY@0630 Discharge Orders: Discharge Order (Routine); Ordered 02/01/25 Ordered By: Myles George Activity on Discharge: As tolerated Stand Alone Forms: Patient Portal Discharge page Print Language: Turkish Care Plan Goals: See below Health Concerns: Rectal bleeding Internal hemorrhoids Colon polyps Plan of Treatment: You were admitted to the hospital after painless bright red blood per rectum concerning for lower GI bleed vs hemorrhoids. you had multiple episodes of bleeding while in the ED as well as last night. You were seen and evaluated by GI and underwent a colonoscopy on 02/01 which showed normal colon mucosa, 1 sessile 6mm polyp, and both external and internal hemorrhoids. your internal hemorrhoids were noted to be large and with a stigmata of recent bleeding. Polyp was removed and sample sent to pathology. Your H&H was stable during your stay, and at time of discharge you have had no recent episodes of rectal bleeding. -- Follow up with Dr. Cruz in GI for pathology results, as well as possible workup for chronic GI upset and diarrhea. -- You will also be referred to [facility] general surgery for possible internal hemorrhoid rubber band ligation that can be performed in the office. -- Follow up with your PCP in 1 week for routine blood work as well as post hospitalization visit. -- Follow up with your [employer] for question of ruptured ovarian cyst as noted on transvaginal ultrasound. Assessment: See discharge summary
--- NOTE | 2025-02-01 15:38 | PC.NURSE ---
Pts home Medication Venessalyn returned to pt at discharge
--- NOTE | 2025-02-01 15:43 | MHC.CM.PN ---
PT REPORTS SHE LIVES WITH HER PARENTS, SON AND HER SISTER SHE IS INDEPENDENT AND WORKS SHE HAS NO DME OR SERVICES COPY OF HCP REQUESTED PCP: SHIRIN ALL[place] [facility] [place] DELIVERED DCP: HOME TODAY VIA FAMILY TRANSPORT
[2025-02-06 19:34] LABS: Calprotectin, Fecal 5 mcg/g
== END 2025-02-01 15:44 | disposition home or self-care (01) ==
LOC: HO.ED 10:41 → HO.EDOVER 11:03 → HO.S3 16:21
PROVIDERS: Internal Medicine; Admitting Provider Student in an Organized Health Care Education/Training Program; Emergency Provider Emergency Medicine; Visit Provider Student in an Organized Health Care Education/Training Program
PROC: 0DJD8ZZ Inspection of Lower Intestinal Tract, Via Natural or Artificial Opening Endoscopic (ICD-10-PCS; CPT 45378; principal; 2025-02-01 15:20)
DX: K62.5 Hemorrhage of anus and rectum (principal); K63.5 Polyp of colon; R18.8 Other ascites; R93.5 Abnormal findings on diagnostic imaging of other abdominal regions, including retroperitoneum; R10.9 Unspecified abdominal pain; N83.201 Unspecified ovarian cyst, right side; G90.A Postural orthostatic tachycardia syndrome [POTS]; J45.20 Mild intermittent asthma, uncomplicated; Z79.899 Other long term (current) drug therapy
CPT/HCPCS: 45385; 36415; 74177; 76830; 76856; 80048; 80053; 81003; 81025; 82272; 83993; 85025; 85027; 86140; 87493; 87507; 88305; 93975; 96360; 96361; 99221; 99285; J2003; J2704; J7120; Q9967

== ENCOUNTER → 2025-01-31 06:11 | Outpatient (BNV) | payer OTHER, SELFPAY | PROVIDERS: Emergency Provider Emergency Medicine; Visit Provider Radiology Diagnostic Radiology | DX: N20.0 Calculus of kidney (principal); R18.8 Other ascites; R10.84 Generalized abdominal pain; N83.01 Follicular cyst of right ovary | CPT/HCPCS: 74177; 76830; 76856; 93975 ==

== ENCOUNTER → 2025-01-31 10:43 | Outpatient (BNV) | payer OTHER, SELFPAY | PROVIDERS: Admitting Provider Student in an Organized Health Care Education/Training Program; Emergency Provider Emergency Medicine; Visit Provider Internal Medicine | DX: K62.5 Hemorrhage of anus and rectum (principal); R10.9 Unspecified abdominal pain; R18.8 Other ascites | CPT/HCPCS: 99222 ==

== ENCOUNTER → 2025-01-31 10:43 | Outpatient (BNV) | payer OTHER, SELFPAY | PROVIDERS: Admitting Provider Student in an Organized Health Care Education/Training Program; Emergency Provider Emergency Medicine; Visit Provider Student in an Organized Health Care Education/Training Program | DX: K62.5 Hemorrhage of anus and rectum (principal) | CPT/HCPCS: 99223 ==